=== PATIENT | male | born 1960 | race Caucasian/White ===

== ENCOUNTER 2024-12-08 13:16 | Inpatient (IN) | payer MEDICAID ==
[~2024-12-08] VITALS: Ht 165.1 cm; Wt 123.7 kg
[2024-12-08] VITALS (18 sets, daily range): BP systolic 101–147; BP diastolic 42–82; PULSE 68–100; RESP 14–29; TEMP 98.2; O2SAT 92–100
--- NOTE | 2024-12-08 13:27 | ELECTROCARDIOGRAPH REPORT ---
[facility] Test Date: 2024-12-08 Test Time: 13:21:43 Pat Name: ANGELA HINTON Department: EMERGENCY ROOM Room: Gender: M Chart Picker: LARISA : 1960 Requested By: RAMA MONTIEL Order Number: [id number] Reading MD: Adan Crocker Measurements Intervals [place] Rate: 105 P: 22 IN: 177 QRS: 66 QRSD: 101 T: -7 QT: 346 QTc: 458 Interpretive Statements Sinus tachycardia Anterior infarct, age indeterminate Electronically Signed On 12-08-2024 15:12:06 PDT by Adan Crocker Please click the below link to view image of tracing.
--- NOTE | 2024-12-08 13:33 | Physician Documentation ---
History of Present Illness ~ Stated Complaint: POST CODE Time Seen by MD: 13:24 OK to notify your PCP?: Yes Source: patient, RN/MD, EMS, RN notes reviewed, EMS notes reviewed, old records Mode of Arrival: EMS Exam Limitations: other HPI This patient is a 64 y/o male BIBEMS to ED from [facility] post-acute for ROSC. Patient has history of delerium and agitation, and is routinely in restraints as he tries to rip out his medical equipment. Today, patient managed to ripped the oxygen from his tracheotomy tube, and was found by staff to be pulseless. [facility] staff, prior to arrival, administered 2 rounds of CPR and 1 round of epi, achieved ROSC. Labs of note prior to arrival at [facility] taken show: Creatinine of 1.64 Vitamin D of 42 Calcium of 13.2 Hematocrit of 25 HPI limited to records from [facility] as patient is agitated and noncompliant with questioning. Medication Reconciliation Allergies: Coded Allergies: Penicillins (Verified Allergy, Severe, STOP BREATHING, 12/08/24) honey (Verified Allergy, Severe, SWELLING, 12/08/24) Past Medical History Past Medical History: Atrial Fibrillation, COPD, Constipation, Diabetes, Chronic Pain, Anxiety Past Surgical History: noncontributory Smoking Status: Unknown if ever smoked Alcohol Use: None Drug Use: none Unable to obtain complete PMH: altered mental status (obtained from old records) Review of Systems Unable to obtain complete ROS: altered mental status Physical Exam Physical Exam General: The patient is agitated. Otherwise well developed, well nourished, nontoxic appearing and is in no acute distress. Skin: [place], warm and dry with no rashes. HEENT: Head was normocephalic and atraumatic. Eyes - pupils equal, round, reactive to light and accommodation. Extraocular movements were intact. Conjunctivae were nonicteric. The mouth and oropharynx were clear with moist mucous membranes. There were no pharyngeal exudates or erythema. Neck: Tracheotomy. Supple and nontender. There was no jugular venous distention, lymphadenopathy, thyromegaly or masses. Chest: Tachypneic. Otherwise clear to auscultation bilaterally without wheezes, rales or rhonchi. No accessory muscle use. No dullness to percussion. Heart: Tachycardic and regular rhythmic. S1, S2. No murmurs. Palpation of the chest wall was normal. No rubs or thrills. Abdomen: Soft, nontender and nondistended. Positive bowel sounds. No guarding or rebound. No hepatosplenomegaly or palpable masses. Extremities: No cyanosis, clubbing or edema. The patient moves all extremities. Pulses were equal and symmetric. Neurologic: Cranial nerves II-XII were intact. Sensation was intact to light touch throughout. Motor strength was 5/5 in all four extremities. Deep tendon reflexes were intact in both upper and lower extremities. Psychologic: Agitated. The patient was oriented to person. Progress Progress Note 1509: Case discussed with Dr. Pino who is aware and agrees to evaluate patient for admission. Results/Orders Reviewed/noted all lab results: Yes Results/Orders Orders - DAVID GUPTA MD Electrocardiogram (12/08/24 13:24) Abg (Arterial Blood Gas) (12/08/24 ) Cult Sputum + Gram Stain (12/08/24 13:35) Aerosol Treatment (12/08/24 ) Non-Behavioral Restraints (12/08/24 13:39) Md To Pavithra (12/08/24 15:09) Heliox Svn Treatment (12/08/24 ) Completed Orders - DAVID GUPTA MD Cbc/Diff (12/08/24 13:24) MG (12/08/24 13:24) Pt Inr (12/08/24 13:24) PTT (12/08/24 13:24) PBNP (12/08/24 13:24) Electrocardiogram (12/08/24 13:24) BMP (12/08/24 13:24) Hs Troponin I W Calculations (12/08/24 13:24) Hs Troponin I W Calculations (12/08/24 15:24) Hs Troponin I W Calculations (12/08/24 16:24) CAION (12/08/24 13:39) Ua W/Microscopic, Cult If Ind (12/08/24 14:35) Albuterol 2.5mg/3ml Nebule (Proventil 2. (12/08/24 16:20) Medications Received in ER Medications (Trade) Dose Ordered Sig/Adalberto Route PRN Reason Start Time Stop Time Status Last Admin Dose Admin (Proventil 2.5 MG/3ML nebule) 2.5 mg ONCE ONCE NEB 12/08/24 16:20 12/08/24 16:21 DC 12/08/24 16:45 2.5 MG Vital Signs 12/08/24 12/08/24 12/08/24 12/08/24 13:19 13:51 13:55 13:55 Temp 98.2 Pulse 104 93 91 Resp 30 28 22 B/P (MAP) 174/88 113/57 (75) Pulse Ox 95 97 96 O2 Delivery Cool/Heated Aerosol Mist+ O2 Flow Rate 15.0 10 FiO2 70 70 70 12/08/24 12/08/24 12/08/24 12/08/24 13:58 14:37 15:08 16:09 Pulse 99 101 102 Resp 28 36 32 B/P (MAP) 117/77 (90) 120/67 (84) 130/86 (101) Pulse Ox 94 94 91 FiO2 70 70 70 12/08/24 16:45 Pulse 100 Resp 28 Pulse Ox 95 O2 Delivery Ventilator+ FiO2 70 Laboratory Tests Test 12/08/24 13:33 12/08/24 13:37 12/08/24 14:28 12/08/24 14:35 Glucometer 134 H Blood Gas Specimen Type Arterial Blood Gas Puncture Site Rr O2 Saturation 86.4 L Arterial Blood pH (Temp corrected) 7.352 Arterial Blood pCO2 (Temp correct) 69.2 *H Arterial Blood pO2 (Temp corrected) 56.2 L Arterial Blood PO2/FiO2 Ratio 0.57 Arterial Blood HCO3 37.6 H Arterial Blood Base Excess 10.2 H Arterial Blood Oxyhemoglobin 85.9 L Arterial Blood Carboxyhemoglobin 0.3 L Arterial Blood Methemoglobin 0.3 Arterial Blood Deoxyhemoglobin 13.5 H Soren Test Positive Blood Gas Hemoglobin 9.2 L Blood Gas Temperature 36.8 Blood Gas Modality Cool aerosol FiO2 100.0 Blood Gas Critical Value Called To Dr gupta White Blood Count 14.5 H Red Blood Count 2.74 L Hemoglobin 8.1 L Hematocrit 24.6 L Mean Corpuscular Volume 89.7 Mean Corpuscular Hemoglobin 29.7 Mean Corpuscular Hemoglobin Concent 33.1 Red Cell Distribution Width 16.6 H Platelet Count 327 Mean Platelet Volume 8.0 Neutrophils (%) (Auto) 83.1 H Lymphocytes (%) (Auto) 6.7 L Monocytes (%) (Auto) 8.8 Eosinophils (%) (Auto) 1.2 Basophils (%) (Auto) 0.2 Neutrophils # (Auto) 12.1 H Lymphocytes # (Auto) 1.0 L Monocytes # (Auto) 1.3 H Eosinophils # (Auto) 0.2 Basophils # (Auto) 0.0 CBC Comment Prothrombin Time 11.8 INR International Normalized Ratio 1.2 Activated Partial Thromboplast Time 25 Coagulation Comments Sodium Level 141 Potassium Level 3.4 L Chloride Level 100 Carbon Dioxide Level 38.2 H Anion Gap 3 L Blood Urea Nitrogen 36 H Creatinine 1.83 H Estimated GFR/1.73 m2 38 BUN/Creatinine Ratio 19.7 Glucose Level 128 H Calcium Level 12.3 *H Ionized Calcium (Measured) 1.53 H Magnesium Level 1.9 Troponin I High Sensitivity 46 Pro-B-Type Natriuretic Peptide 654 H Albumin 2.7 L Chemistry Comments Urine Specimen Description Urinal Urine Color Yellow Urine Clarity Clear Urine pH 6.0 Urine Specific [place] 1.015 Urine Protein Trace Urine Glucose (UA) Negative Urine Ketones Negative Urine Occult Blood Negative Urine Nitrite Negative Urine Bilirubin Negative Urine Urobilinogen 0.2 Urine Leukocyte Esterase Negative Urine RBC 0-2 Urine WBC 0-4 Urine Squamous Epithelial Cells Few Urine Transitional Epithelial Cells Few Urine Bacteria None seen Urine Hyaline Casts 10-30 Urine Culture Indicated Not ind Volume Urine Centrifuged 10 ml Urine Comment Test 12/08/24 16:48 Troponin I High Sensitivity 117 *H Troponin I High Sens Percent Delta 154 Troponin I Hi Sens Absolute Change 71 Microbiology Date/Time Source Procedure Growth Status 12/08/24 13:30 Sputum Endotracheal Suction Respiratory Culture - Preliminary Resulted Re-Evaluation Re-Evaluation : Re-Evaluation: Improved Progress Patient was seen and examined. Patient is given reassurance. The patient is status post cardiac arrest asystole per EMS. He was brief. Patient had a complication with his trachea is large phlegm mucus was removed from the trachea. Patient remained normotensive. Laboratory work was obtained. WBCs slightly elevated with 14.5 otherwise hemoglobin hematocrit shows anemia at 8.1 and hematocrit 24 point six. Platelets 327 with a 83 neutrophils. ABG showed some CO2 retention with hypoxia. Coagulation within normal limits chemistry within normal limits. Patient received neb treatments Heliox treatments were because of some difficulty breathing. He seemed altered confused. Fluids were also given to the patient and ultimately was admitted for further workup and care. Continuous scrap hooker interpretation shows normal sinus rhythm heart rate 80s, no ectopy, normal, my interpretation. Pulse oximetry monitor interpretation shows low oxygenation at 95% on 15% non- rebreather on a T-piece. EKG/XRAY/CT/US/VASC/MRI EKG : Additional Comment Patient: ANGELA HINTON Medical Record: [id number] : 1960, Age: 64Sex: M Location: ER Patient Status: REG ER Service Date/Time: 124356 Ordering Physician: DAVID GUPTA MD Exam Name: ELECTROCARDIOGRAM Technologist: [facility] Test Date: 2024-12-08 Test Time: 13:21:43 Pat Name: ANGELA HINTON Department: EMERGENCY ROOM Room: Gender: M Twisthand: : 1960 Requested By: DAVID GUPTA Order Number: [id number] Reading MD: Adan Coughlin Measurements Intervals [place] Rate: 105 P: 22 FL: 177 QRS: 66 QRSD: 101 T: -7 QT: 346 QTc: 458 Interpretive Statements Sinus tachycardia Anterior infarct, age indeterminate Electronically Signed On 12-08-2024 15:12:06 PDT by Adan Coughlin Please click the below link to view image of tracing. EKG Date and Time:12/08/24 1321 Electronically Signed by: ADAN COUGHLIN MD Date and Time: 12/08/24 1512 NO PRIMARY CARE PROVIDER~ cc: ~ Medical Decision Making Additional info obtained from: old records Differential Dx:Considerations: Include: angina, aortic dissection, chest wall pain, cholelithiasis, CHF, costochondritis, esophageal reflux/spasm, gastritis, herpes zoster, myocardial infarction, pericarditis, pleuritis, pancreatitis, pneumonia, pneumothorax, pulmonary embolus, other Departure Time of Disposition: 15:09 Disposition: 09 ADMITTED INPATIENT Admitted to Inpatient Unit: yes, to gis administrator Admission Level of Care: Critcal Care Impression: Primary Impression: Acute and chronic respiratory failure with hypercapnia Additional Impressions: Hypercalcemia Non-ST elevation OR (NSTEMI) Condition: Critical Referrals: NO PRIMARY CARE PROVIDER (PCP) Education Educated: Patient Critical Care Note Total Time (mins): 30 Critical Care Note The very real possibility of a deterioration of this patient's condition required the highest level of my preparedness for sudden, emergent intervention. I provided critical care services, which included medication orders, frequent reevaluations of the patient's condition and response to treatment, ordering and reviewing test results, and discussing the case with various consultants. Exclu lela time spent performing separately billable procedures. The critical care time associated with the care of the patient was. 30 minutes Signature Scribe Signature: No scribed Attestation: The note accurately reflects work and decisions made by me.David Gupta MD 12/08/24 15:35 DAVID GUPTA MD Dec 08, 2024 13:33
[2024-12-08 13:40] LABS: ABG BASE EXCESS 10.2 mmol/L (-2.0-3.0); ABG HCO3 37.6 mmol/L (21.0-28.0); ABG OXYGEN SATURATION 86.4 % (94.0-98.0); ABG PCO2 (T) 69.2 mmHg (35.0-48.0); ABG PH (T) 7.352 (7.350-7.450); ABG PO2 (T) 56.2 mmHg (83.0-108.0); ALLEN'S TEST POSITIVE; FCOHb 0.3 % (0.5-1.5); FHHb 13.5 % (0.0-5.0); FMetHb 0.3 % (0.0-1.5); FO2Hb 85.9 % (94.0-98.0); MODE COOL AEROSOL; PATIENT TEMPERATURE 36.8; TOTAL HEMOGLOBIN 9.2 G/dl (13.5-17.5)
[2024-12-08 14:40] LABS: BASOPHILS % (AUTO) 0.2 % (0-1); EOSINOPHILS # (AUTO) 0.2 X10'3 (0-0.9); EOSINOPHILS % (AUTO) 1.2 % (0-6); HEMATOCRIT 24.6 % (42.0-52.0); HEMOGLOBIN 8.1 g/dl (14.0-17.9); LYMPHOCYTES % (AUTO) 6.7 % (21-51); MEAN CORPUSCULAR HEMOGLOBIN 29.7 PG (27.0-31.0); MEAN CORPUSCULAR HGB CONC 33.1 g/dL (33.0-36.5); MEAN CORPUSCULAR VOLUME 89.7 FL (78-98); MONOCYTES # (AUTO) 1.3 X10'3 (0-0.9); MONOCYTES % (AUTO) 8.8 % (2-12); NEUTROPHILS # (AUTO) 12.1 X10'3 (1.8-7.7); NEUTROPHILS % (AUTO) 83.1 % (42-75); PLATELET COUNT 327 X10'3 (140-440); RED BLOOD COUNT 2.74 X10'6 (4.70-6.10); RED CELL DISTRIBUTION WIDTH 16.6 % (11.5-14.5); WHITE BLOOD COUNT 14.5 X10'3 (4.5-11.0)
[2024-12-08 14:53] LABS: BILIRUBIN,URINE NEGATIVE (Neg); CLARITY,URINE CLEAR (Clear); COLOR,URINE YELLOW (Yellow); GLUCOSE, URINE NEGATIVE (Neg); KETONES,URINE NEGATIVE (Neg); LEUKOCYTE ESTERASE ,URINE NEGATIVE (Neg); NITRITES, URINE NEGATIVE (Neg); OCCULT BLOOD,URINE NEGATIVE (Neg); PROTEIN,URINE TRACE mg/dl (Neg); UROBILINOGEN,URINE 0.2 E.U/dL (0.2-1.0)
[2024-12-08 14:55] LABS: APTT 25 SECONDS (22-32); INR 1.2 INR; PROTHROMBIN TIME 11.8 SECONDS (9.0-12.0)
[2024-12-08 14:57] LABS: UA COLLECTION TYPE URINAL
[2024-12-08 15:03] LABS: ALBUMIN 2.7 G/DL (3.4-5.0); ANION GAP 3 (8-16); BLOOD UREA NITROGEN 36 MG/DL (7-18); BUN/CREATININE RATIO 19.7 (10.0-20.0); CHLORIDE 100 MMOL/L (99-107); CREATININE 1.83 MG/DL (0.60-1.10); GLUCOSE 128 MG/DL (70-104); MAGNESIUM 1.9 MG/DL (1.5-2.4); POTASSIUM 3.4 MMOL/L (3.5-5.1); PRO BRAIN NATRIURETIC PEPTIDE 654 PG/ML (0-125); SODIUM 141 MMOL/L (135-145); TOTAL CARBON DIOXIDE 38.2 MMOL/L (24-32); eCRCL 36 ML/MIN; eGFR 38 ML/MIN
[2024-12-08 15:11] LABS: RBC,URINE 0-2 /HPF (0-2); WBC,URINE 0-4 /HPF (0-4)
[2024-12-08 15:12] LABS: BACTERIA,URINE NONE SEEN /HPF (Neg); SQUAMOUS EPITHELIAL CELL,UR FEW /LPF (FEW); TRANSITIONAL EPI CELLS,URINE FEW /HPF
[2024-12-08 15:13] LABS: CALCIUM 12.3 MG/DL (8.5-10.1)
[2024-12-08] MEDS ORDERED: mag hydrox/Alum hydrox/simeth 30ml oral suspension PO PRN (16:45)
[2024-12-08] MEDS ORDERED: potassium Cl 20 mEq SR tablet PO PRN ×2 (16:45)
[2024-12-08] MEDS ORDERED: magnesium hydroxide 30ml (MOM) UD suspension PO PRN (16:45)
[2024-12-08] MEDS ORDERED: magnesium sulf-water 4G/100mL 100 ML IV PRN (16:45)
[2024-12-08] MEDS ORDERED: magnesium Cl slow-release 64mg tablet PO PRN (16:45)
[2024-12-08] MEDS: albuterol 2.5 MG/3 ML nebule NEB ONE (16:45)
[2024-12-08] MEDS ORDERED: magnesium sulf-water 2g/50mL 50 ML IV PRN (16:45)
[2024-12-08] MEDS ORDERED: acetaminophen 325mg tablet PO PRN (16:45)
--- NOTE | 2024-12-08 17:07 | HISTORY AND PHYSICAL ---
History of Present Illness History of present illness 64-year-old male who was transferred from [facility] after suffering a respiratory arrest. Charge nurse reports that the patient started having some oxygen desaturations on his telemetry and when they went to check on the patient, patient was found to be cyanotic and unresponsive with humidified trach collar off. He was pulseless and a code was called. He had ROSC after two rounds of epinephrine and also became responsive i.e. squeezing hands with both of his upper extremities to command according to the charge nurse. He was then transferred to [facility] where he arrived awake alert and commanding as well as hemodynamically stable . I was consulted to admit the patient to the ICU. Background history of the patient was that he was initially admitted to [facility] for acute respiratory failure that required a tracheostomy and PEG tube placement and was transferred to [facility]. He was transferred again to [facility] and back to [facility] He required another transferred to [facility] for altered level of consciousness and fevers and was found to have ESBL Proteus pneumonia. He was also notable for TORITO on CKD and was started on renal replacement therapy. He showed some improvements and was transferred back to [facility]. Expected to stay > 48 hours Yes Reason for Visit: Pulmonary critical care consultation Chief complaint Status post respiratory arrest culminating in cardiac arrest. Source: Other (Charge nurse [facility]) Past Medical History Past medical history Obesity, hypotension, amphetamine use,HFpEF, CKD, chronic pressure wounds, acute respiratory failure Past Surgical History Surgical history Noncontributory. Past Family History Family history Noncontributory Past Social History Social history History of cigarette smoking and amphetamine use. Medications Current medications Current Medications Albuterol (Proventil 2.5 MG/3ML nebule) 2.5 mg ONCE ONCE NEB Last administered on 12/08/24at 16:45; Start 12/08/24 at 16:20; Stop 12/08/24 at 16:21; Status DC Ondansetron HCl (Zofran 4mg/2ml vial) 4 mg Q6H PRN IV nausea/vomiting; Start 12/08/24 at 16:45; Status UNV Acetaminophen (Tylenol tablet) 650 mg Q6H PRN PO Fever above 101; Start 12/08/24 at 16:45; Status UNV Al Hydroxide/Mg Hydroxide (Maalox oral suspension) 30 ml Q4H PRN PO indigestion/dyspepsia; Start 12/08/24 at 16:45; Status UNV Docusate Sodium (Colace capsule) 100 mg BID PO ; Start 12/08/24 at 20:00; Status UNV Magnesium Hydroxide (milk of magnesia oral suspension) 30 ml DAILY PRN PO constipation; Start 12/08/24 at 16:45; Status UNV Potassium Chloride (K-DUR tablet) 20 meq Q4H PRN PO Potassium 3.1-3.4; Start 12/08/24 at 16:45; Stop 12/11/24 at 16:44; Status UNV Potassium Chloride (K-DUR tablet) 40 meq Q4H PRN PO Potassium 3.0 or less; Start 12/08/24 at 16:45; Stop 12/11/24 at 16:44; Status UNV Magnesium Chloride (Slow-Mag tablet) 128 mg BID PRN PO Mag 1.4 or less & can take PO; Start 12/08/24 at 16:45; Stop 12/11/24 at 16:44; Status UNV Review of Systems Review of Systems Review of Systems Unable to get review of systems from the patient on mechanical ventilation. Allergies: Coded Allergies: Penicillins (Verified Allergy, Severe, STOP BREATHING, 12/08/24) honey (Verified Allergy, Severe, SWELLING, 12/08/24) Exam Vital signs Vital Signs Date Time Temp Pulse Resp B/P (MAP) Pulse Ox O2 Delivery O2 Flow Rate FiO2 12/08/24 16:45 100 28 95 Ventilator+ 70 12/08/24 16:09 102 130/86 (101) 91 70 12/08/24 15:08 101 32 120/67 (84) 94 70 12/08/24 14:37 99 36 117/77 (90) 94 70 12/08/24 13:58 28 12/08/24 13:55 91 22 96 Cool/Heated Aerosol Mist+ 10 70 12/08/24 13:55 70 12/08/24 13:51 93 28 113/57 (75) 97 70 12/08/24 13:19 98.2 104 30 174/88 95 15.0 Physical exam General: Awake alert and in respiratory distress new line HEENT examination: N/C/AT, PERRLA, EOMI Neck: Tracheostomy in place, no lymphadenopathy Chest: Symmetric expansion bilaterally. Pulmonary: Bilateral diffuse wheezing, no rales and no rhonchi. Abdomen: Soft nontender and no organomegaly. Extremities: 1+ edema Neurological examination: Grossly nonfocal. Laboratory Results Laboratory Tests 12/08/24 14:28 Chemistry Test 12/08/24 14:28 Albumin 2.7 G/DL (3.4-5.0) L Calcium Level 12.3 MG/DL (8.5-10.1) *H Magnesium Level 1.9 MG/DL (1.5-2.4) Coagulation Test 12/08/24 14:28 Prothrombin Time 11.8 SECONDS (9.0-12.0) INR International Normalized Ratio 1.2 INR Activated Partial Thromboplast Time 25 SECONDS (22-32) Coagulation Comments Urinalysis Test 12/08/24 14:35 Urine Specimen Description Urinal Urine Color Yellow (Yellow) Urine Clarity Clear (Clear) Urine pH 6.0 (4.8-8.0) Urine Specific [place] 1.015 (1.001-1.035) Urine Protein Trace mg/dl (Neg) Urine Glucose (UA) Negative mg/dl (Neg) Urine Ketones Negative mg/dl (Neg) Urine Occult Blood Negative (Neg) Urine Nitrite Negative (Neg) Urine Bilirubin Negative (Neg) Urine Urobilinogen 0.2 E.U/dL (0.2-1.0) Urine Leukocyte Esterase Negative (Neg) Urine RBC 0-2 /HPF (0-2) Urine WBC 0-4 /HPF (0-4) Urine Squamous Epithelial Cells Few /LPF (FEW) Urine Transitional Epithelial Cells Few /HPF Urine Bacteria None seen /HPF (Neg) Urine Hyaline Casts 10-30 /LPF (NEGATIVE) Urine Culture Indicated Not ind Volume Urine Centrifuged 10 ml Urine Comment Microbiology Microbiology 12/08/24 Respiratory Culture - Preliminary, Resulted Assessment/Plan Plan Acute on chronic respiratory failure culminating in cardiac arrest. Acute coronary syndrome Cardiac arrest with ROSC: Patient awake alert and responsive. Atrial fibrillation: Currently in sinus rhythm Bronchospasm: Could be due to COPD exacerbation or cardiac asthma Obesity Obstructive sleep apnea Plan: Initiate full support ventilation in light of respiratory distress and wheezing. Continue bronchodilator therapy with albuterol/ipratropium bromide q.4 hours. Also continue formoterol and budesonide. Complete cardiac enzyme assays. No need for IV heparin/aspirin at this point. We will obtain echocardiogram Continue apixaban for atrial fibrillation. Continue all other hospital medications. Code status: Full code Sedation: No continue sedation ordered. Analgesia: Avoid use of narcotics and try to use p.r.n. Tylenol. Nutrition: Continue Nepro 50 mL/hour per PEG tube. Overall prognosis: Guarded Critical care time in excess of 35 minutes. VTE VTE Risk Score VTE Risk Score Reference Ranges: Score 0-1 = Low Risk (Aggressive mobilization; early ambulation; no VTE prophylaxis required) Score 2: Moderate Risk (Intermittent/Pneumatic Compression Device OR Lovenox/Heparin/Coumadin) Score 3-4: High Risk (Intermittent/Pneumatic Compression Device AND Lovenox/Heparin/Coumadin) Score > or = 5: Highest Risk (Intermittent/Pneumatic Compression Device AND Lovenox/Heparin/Coumadin) ANNA DUBON MD Dec 08, 2024 17:07
[2024-12-08] MEDS ORDERED: magnesium hydroxide 30ml (MOM) UD suspension PEG PRN (17:31)
[2024-12-08] MEDS ORDERED: POTASSIUM CHLORIDE 20 MEQ/15 ML oral solution PEG PRN (17:32)
[2024-12-08] MEDS: POTASSIUM CHLORIDE 20 MEQ/15 ML oral solution PEG PRN (17:43)
--- NOTE | 2024-12-08 18:08 | RADIOLOGY REPORT ---
CLINICAL INFORMATION: 64 years old, Male; Acute respiratory arrest. TECHNIQUE: Single AP portable chest radiograph was obtained. COMPARISON: None FINDINGS: Lungs: Low lung volumes. Bibasilar opacities, likely atelectasis and possible consolidation, left gre ater than right. No pneumothorax visualized. Cardiac: Heart size is within normal limits. Pulmonary vasculature: Unremarkable. Mediastinum/archana: Tracheostomy tube in place. Bones: No acute osseous abnormality identified. Other: Defibrillator pad overlies the central aspect of the chest, partially obscuring visualization. Examination is also limited due to body habitus and portable semi-upright AP technique. IMPRESSION: 1. Low lung volumes with bibasilar opacities, likely atelectasis and possible consolidation, left gre ater than right. 2. Limited examination for the reasons described above.
[2024-12-08] MEDS: LidoCAINE 2% Topical Jelly 11mL syringe (UROJET) TOP ONE (18:10)
[2024-12-08] MEDS: dexmedetomidin/NS 400mcg/100ml 100 ML IV PRN (18:25)
[2024-12-08] MEDS: budesonide 0.5mg/2ml UD nebule IH SCH (19:00)
[2024-12-08] MEDS: ipratropium/albuterol 3ml nebule NEB SCH (19:00)
[2024-12-08] MEDS: K and/or MAG REPLACEMENT MC SCH (20:00)
[2024-12-08] MEDS: insulin regular, human U-100 10ml vial - multi-dose SQ SCH (20:00)
[2024-12-08] MEDS: apixaban 5mg tablet PEG SCH (21:31)
[2024-12-08] MEDS: famotidine 20mg tablet PEG SCH (21:31)
[2024-12-08] MEDS: docusate sodium 100mg/10ml UD cup PEG SCH (21:31)
[2024-12-08] MEDS: furosemide 40 MG/4 ML oral solution UD cup PEG SCH (21:32)
[2024-12-08] MEDS: potassium Cl 40MEQ/1/2NS 520ml 520 ML IV PRN (21:57)
[2024-12-08] MEDS: furosemide 20 MG/2 ML vial IV ONE (23:38)
[2024-12-08] MEDS: GABAPENTIN 300 MG/6 ML oral SOLUTION cup PEG SCH (23:39)
[2024-12-09] VITALS (45 sets, daily range): BP systolic 101–130; BP diastolic 34–61; PULSE 63–85; RESP 2–29; O2SAT 91–97
[2024-12-09 03:08] LABS: ABG BASE EXCESS 8.5 mmol/L (-2.0-3.0); ABG HCO3 32.5 mmol/L (21.0-28.0); ABG OXYGEN SATURATION 92.8 % (94.0-98.0); ABG PCO2 (T) 42.7 mmHg (35.0-48.0); ABG PH (T) 7.499 (7.350-7.450); ABG PO2 (T) 63.3 mmHg (83.0-108.0); ALLEN'S TEST POSITIVE; FCOHb 0.5 % (0.5-1.5); FHHb 7.2 % (0.0-5.0); FO2Hb 92.3 % (94.0-98.0); MODE VENT - APRV; PATIENT TEMPERATURE 37.1; TIDAL VOLUME 400 mL; TOTAL HEMOGLOBIN 8.3 G/dl (13.5-17.5)
--- NOTE | 2024-12-09 05:43 | RADIOLOGY REPORT ---
EXAM: XR Chest, 1 View CLINICAL INDICATION: ET Tube Placement TECHNIQUE: Frontal view of the chest. COMPARISON: DI CHEST,SINGLE VIEW on DOS: 12/08/24 FINDINGS: LUNGS AND PLEURAL SPACES: Bilateral pleural effusions. HEART: Cardiomegaly with pulmonary congestion and edema. Superimposed pneumonia cannot be excluded. MEDIASTINUM: Unremarkable. Normal mediastinal contour. BONES/JOINTS: Unremarkable. No acute fracture. TUBES, LINES AND DEVICES: Tracheostomy tube in satisfactory position. OTHER FINDINGS: . . . IMPRESSION: 1. Cardiomegaly with pulmonary congestion and edema. Superimposed pneumonia cannot be excluded. 2. Bilateral pleural effusions.
[2024-12-09 06:01] LABS: BASOPHILS % (AUTO) 0.4 % (0-1); EOSINOPHILS # (AUTO) 0.1 X10'3 (0-0.9); EOSINOPHILS % (AUTO) 1.3 % (0-6); LYMPHOCYTES # (AUTO) 0.6 X10'3 (1.1-4.8); LYMPHOCYTES % (AUTO) 8.6 % (21-51); MEAN CORPUSCULAR HEMOGLOBIN 29.8 PG (27.0-31.0); MEAN CORPUSCULAR HGB CONC 33.3 g/dL (33.0-36.5); MEAN CORPUSCULAR VOLUME 89.4 FL (78-98); MONOCYTES # (AUTO) 0.8 X10'3 (0-0.9); MONOCYTES % (AUTO) 10.8 % (2-12); NEUTROPHILS # (AUTO) 5.8 X10'3 (1.8-7.7); NEUTROPHILS % (AUTO) 78.9 % (42-75); PLATELET COUNT 263 X10'3 (140-440); RED BLOOD COUNT 2.69 X10'6 (4.70-6.10); RED CELL DISTRIBUTION WIDTH 16.4 % (11.5-14.5); WHITE BLOOD COUNT 7.4 X10'3 (4.5-11.0)
[2024-12-09 06:08] LABS: ALBUMIN 2.6 G/DL (3.4-5.0); ANION GAP 5 (8-16); BLOOD UREA NITROGEN 37 MG/DL (7-18); BUN/CREATININE RATIO 19.7 (10.0-20.0); CALCIUM 11.1 MG/DL (8.5-10.1); CHLORIDE 100 MMOL/L (99-107); CREATININE 1.88 MG/DL (0.60-1.10); GLUCOSE 113 MG/DL (70-104); MAGNESIUM 1.9 MG/DL (1.5-2.4); POTASSIUM 3.9 MMOL/L (3.5-5.1); SODIUM 141 MMOL/L (135-145); TOTAL CARBON DIOXIDE 35.8 MMOL/L (24-32); eCRCL 35 ML/MIN; eGFR 36 ML/MIN
[2024-12-09] MEDS: levoTHYROXINE 125mcg tablet PEG SCH (08:22)
[2024-12-09] MEDS: ferrous sulfate 300mg/5ml UD oral liquid PEG SCH (08:22)
[2024-12-09] MEDS: levoTHYROXINE 25mcg tablet PEG SCH (08:23)
[2024-12-09] MEDS: montelukast 10mg tablet PEG SCH (08:23)
[2024-12-09] MEDS ORDERED: metolazone 2.5mg tablet PO SCH (08:35)
[2024-12-09] MEDS: furosemide 10 MG/1 ML 10ml inj IV SCH (09:04)
[2024-12-09] MEDS: nystatin 15 GM powder TP SCH (09:04)
[2024-12-09] MEDS ORDERED: dexmedetomidine 200mcg/2ml inj. IV ONE (09:45)
[2024-12-09] MEDS ORDERED: FER300L PO (10:00)
[2024-12-09] MEDS ORDERED: APIX5TAB3 PO (10:00)
[2024-12-09] MEDS ORDERED: GABA-530 PO (10:00)
[2024-12-09] MEDS ORDERED: LEVO150T8 PO (10:00)
[2024-12-09] MEDS ORDERED: MONT-40 PO (10:00)
[2024-12-09] MEDS ORDERED: LIDO1ADH78 TOP (10:00)
[2024-12-09] MEDS ORDERED: FURO-149 IV (10:00)
[2024-12-09] MEDS ORDERED: FAMO20TA8 PO (10:00)
[2024-12-09] MEDS ORDERED: INSU100V49 SQ (10:00)
[2024-12-09] MEDS ORDERED: FORM20VI4 NEB (10:00)
[2024-12-09] MEDS: risperiDONE 2mg tablet PEG ONE (10:25)
[2024-12-09] MEDS ORDERED: ALB0.5UD NEB (10:37)
[2024-12-09] MEDS ORDERED: [UNRECOGNIZED DRUG - CODE] IM (10:37)
[2024-12-09] MEDS ORDERED: HYDR-3965 PO (10:37)
[2024-12-09] MEDS ORDERED: BUDE0.256 NEB (10:37)
[2024-12-09] MEDS: nystatin 500,000 unit/5ML UD oral suspension PO SCH (11:35)
--- NOTE | 2024-12-09 11:47 | PROGRESS NOTE ---
Subjective Subjective Patient is seen today. On full mechanical ventilation support via tracheostomy. FiO2 from 80% down to 70%. Chest x-ray showing interval worsening of bilateral pulmonary infiltrates suggestive of pulmonary edema. Reason for visit: Pulmonary critical care follow-up Reviewed: Care Plan, H&P, Labs, Radiology Review of Systems Changes from previous H/P or p: No Changes Daily Progress Note Exam Vitals Vital Signs Date Time Temp Pulse Resp B/P (MAP) Pulse Ox O2 Delivery O2 Flow Rate FiO2 12/09/24 11:00 98.2 74 17 116/52 (73) 94 Mechanical Ventilator 70 12/08/24 13:55 10 Result Diagram: 12/09/24 0421 12/09/24 042 Exam General: Awake alert and in respiratory distress new line HEENT examination: N/C/AT, PERRLA, EOMI Neck: Tracheostomy in place, no lymphadenopathy Chest: Symmetric expansion bilaterally. Pulmonary: Bilateral diffuse wheezing, no rales and no rhonchi. Abdomen: Soft nontender and no organomegaly. Extremities: 1+ edema Neurological examination: Grossly nonfocal. Results Coagulation Studies Laboratory Tests Test 12/08/24 14:28 Prothrombin Time 11.8 SECONDS (9.0-12.0) INR International Normalized Ratio 1.2 INR Activated Partial Thromboplast Time 25 SECONDS (22-32) Coagulation Comments VTE VTE Risk Score VTE Risk Score Reference Ranges: Score 0-1 = Low Risk (Aggressive mobilization; early ambulation; no VTE prophylaxis required) Score 2: Moderate Risk (Intermittent/Pneumatic Compression Device OR Lovenox/Heparin/Coumadin) Score 3-4: High Risk (Intermittent/Pneumatic Compression Device AND Lovenox/Heparin/Coumadin) Score > or = 5: Highest Risk (Intermittent/Pneumatic Compression Device AND Lovenox/Heparin/Coumadin) Assessment/Plan Plan Acute on chronic respiratory failure culminating in cardiac arrest. Acute coronary syndrome Cardiac arrest with ROSC: Patient awake alert and responsive. Atrial fibrillation: Currently in sinus rhythm Bronchospasm: Could be due to COPD exacerbation or cardiac asthma Obesity Obstructive sleep apnea Plan: Continue full support ventilation in light of ARDS i.e. currently on a PEEP of 10 and FiO2 of 70%. Continue bronchodilator therapy with albuterol/ipratropium bromide q.4 hours. Also continue formoterol and budesonide. Adjust diuretic therapy to Lasix 60 mg IV q.6 hours and metolazone 10 mg per tube q.12 hours. Follow electrolytes. Check procalcitonin level. Complete cardiac enzyme assays. No need for IV heparin/aspirin at this point. Echocardiography results pending. Continue apixaban for atrial fibrillation. Continue all other hospital medications. Code status: Full code Sedation: No continue sedation ordered. Analgesia: Avoid use of narcotics and try to use p.r.n. Tylenol. Nutrition: To be addressed by dietary. Overall prognosis: Guarded Critical care time in excess of 35 minutes. Expected Outcome/Goals Expected Outcomes/Goals: maintain stable wt, TF tolerance, bowel regularity, optimal skin integrity ANNA DUBON MD Dec 09, 2024 11:47
[2024-12-09 11:53] LABS: MAGNESIUM 1.8 MG/DL (1.5-2.4); PHOSPHORUS 2.6 MG/DL (2.3-4.5); POTASSIUM 3.6 MMOL/L (3.5-5.1)
[2024-12-09 12:05] LABS: PREALBUMIN 15.3 MG/DL (19-36)
[2024-12-09 12:12] LABS: HEMOGLOBIN A1C 5.8 % (4.5-6.2)
[2024-12-09 12:36] LABS: ALANINE AMINOTRANSFERASE 21 U/L (12-78); ALBUMIN 2.5 G/DL (3.4-5.0); ALBUMIN/GLOBULIN RATIO 0.6 (1.1-1.5); ALKALINE PHOSPHATASE 84 IU/L (46-116); ASPARTATE AMINO TRANSFERASE 19 U/L (10-37); BILIRUBIN,DIRECT 0.1 MG/DL (0-0.3); BILIRUBIN,TOTAL 0.3 MG/DL (0.1-1.0); TOTAL PROTEIN 6.7 G/DL (6.4-8.2)
[2024-12-09] MEDS: risperiDONE 0.5mg tablet PEG ONE (13:03)
--- NOTE | 2024-12-09 17:51 | CONSULTATION REPORT - RESIDENT ---
Consult Providers to CC Resident Creating Document: JOAO RUSSELL RES History of Present Illness Reason for Admit\Complaint: Respiratory arrest History of Present Illness 64-year-old male patient with past medical history of obesity, hypotension, amphetamine use, heart failure with preserved ejection fraction, CKD, chronic pressure wounds, acute respiratory failure came to the hospital transferred from [facility] after suffering a respiratory arrest. The patient was found cyanotic and unresponsive at [facility]. When the patient was evaluated by charge nurse he was pulseless and code was called. He had ROSC after two rounds of epinephrine and also became responsive squeezing hands with both of his upper extremities to command according to charge nurse. The patient was transferred to [facility] where he arrived awake as well hemodynamically stable. The patient was admitted to ICU. Background history of the patient was that he was initially admitted to [facility] for acute respiratory failure that required a tracheostomy and PEG tube placement and was transferred to [facility]. He was transferred again to [facility] and back to [facility] He required another transferred to [facility] for altered level of consciousness and fevers and was found to have ESBL Proteus pneumonia. He was also notable for TORITO on CKD and was started on renal replacement therapy. He showed some improvements and was transferred back to [facility]. Allergies: Coded Allergies: Penicillins (Verified Allergy, Severe, STOP BREATHING, 12/08/24) honey (Verified Allergy, Severe, SWELLING, 12/08/24) Home Medications Home Medications Active Reported Garfield 5/325 MG (Acetaminophen/Hydrocodone Bitart) 5 Mg/325 Mg Tablet 1 Tab PO Q6H PRN Proventil Nebs* (Albuterol) 2.5 Mg/0.5 Ml Vial.neb 1 Vial NEB Q4H 10 Days Diazepam 5 Mg/Ml Syringe 10 Mg IM BID Budesonide 0.25 Mg/2 Ml Ampul.neb 1 Vial NEB Q12H 30 Days Eliquis (Apixaban) 5 Mg Tablet 1 Tab PO Q12H 30 Days Montelukast Sodium 10 Mg Tablet 1 Tab PO DAILY 30 Days Lidocaine 4 % Adh..patch 1 Patch TOP DAILY 10 Days Levothyroxine Sodium 150 Mcg Tablet 1 Tab PO DAILY 30 Days Insulin Lispro 100 Unit/Ml Vial 1 Unit SQ SLIDING SCALE Gabapentin 100 Mg Capsule 1 Cap PO TID 30 Days Lasix (Furosemide) 40 Mg Tablet 1 Tab PO DAILY 30 Days Formoterol Fumarate 20 Mcg/2 Ml Vial.neb 2 Ml NEB BID Ferrous Sulfate 300 Mg (60 Mg Iron)/5 Ml Liquid 5 Ml PO DAILY 30 Days Famotidine 20 Mg Tablet 1 Tab PO DAILY 30 Days Past Medical History Past Medical History Obesity, hypotension, amphetamine use, heart failure with preserved ejection fraction, CKD, chronic pressure wounds, acute respiratory failure, ESBL Proteus pneumonia. Past Surgical History Surgical History Comment S/p tracheostomy. Exam Vitals: Vital Signs Date Time Temp Pulse Resp B/P (MAP) Pulse Ox O2 Delivery O2 Flow Rate FiO2 12/09/24 17:29 119/54 12/09/24 17:00 21 60 12/09/24 17:00 98.1 75 94 Mechanical Ventilator 12/08/24 13:55 10 Physical exam: General: Patient is currently under sedation due to mechanical ventilation. HEENT: Conjunctive are pink, sclerae clear, no icterus, pupil is equal in both sides, reactive to light, no ear discharge, no pharyngeal erythema or an edema, presence of tracheostomy Neck: Supple, no JVD, no lymphadenopathy and thyromegaly. Chest: Equal air entry on both lungs, diffuse bilateral wheezing. Cardiovascular: S1-S2 regular sinus rhythm and, regular rate, no gallops, no rubs, no murmurs Abdomen: No visible peristalsis, Bowel sounds present on auscultation, soft, nontender, no guarding, no rigidity Extremities: No obvious deformities, 1+ pedal edema, capillary refill intact, peripheral pulsations are intact on both sides Central Nervous System: No focal neurological deficits, 2+ deep tendon reflexes, negative Babinski. Musculoskeletal: No joint swelling, deformities, inflammations. Diagnostic Data Last Recorded Lab Results: 12/09/24 0421 12/09/24 1040 Diagnostic Data: Laboratory Tests Test 12/08/24 14:28 Prothrombin Time 11.8 SECONDS (9.0-12.0) INR International Normalized Ratio 1.2 INR Activated Partial Thromboplast Time 25 SECONDS (22-32) Coagulation Comments Additional Plan Assessment and plan: 64-year-old male patient transferred from [facility] after respiratory arrest. Acute on chronic respiratory failure culminating in cardiac arrest: Cardiac arrest with ROSC: Patient awake alert and responsive. Bronchospasm: Could be due to COPD exacerbation or cardiac asthma: Obstructive sleep apnea: Obesity: Initiated on full support ventilation in light of respiratory distress and wheezing. Troponin levels: [phone]. Currently on DuoNeb q.4h scheduled. Budesonide 0.5 mg b.i.d. IH. On furosemide 60 mg q.6h IV, and metolazone 10 mg per tube q.12 hours. Atrial fibrillation rate controlled: Eliquis 5 mg b.i.d. Normocytic normochromic anemia: Hemoglobin 8.0, hematocrit 24.0, MCV 89.4. On ferrous sulfate 300 mg daily. Chronic kidney disease: Creatinine 1.83, GFR 38. BUN/creatinine ratio 19.7. Continue monitoring CMP. Hypothyroidism: Levothyroxine 150 mg daily. Code status: Full code DVT prophylaxis: The patient is currently on Eliquis Analgesia/sedation: Dexmedetonidine Line/tube: Tracheostomy tube, PIV. GI prophylaxis: Famotidine Nutrition: Tube feeding Prognosis: Guarded Disposition: Continue management by chair lift operator. Joao Zamora Internal Medicine Resident [facility] Date of Service: Dec 09, 2024 Billing Provider: JOSE BRADFORD MD Common Visit Codes: [id number] INP/OBS CARE(HIGH) JOAO RUSSELL, RES Dec 09, 2024 17:51 JOSE BRADFORD MD Dec 09, 2024 20:37
--- NOTE | 2024-12-09 18:43 | CARDIOLOGY REPORT ---
APPROVED REPORT EXAM: Comprehensive 2D, Doppler, and color-flow Echocardiogram. Patient Location: 2013 A Blood Pressure: 107/43 mmHg Heart Rate: 80 bpm Rhythm: SINUS Indications CONGESTIVE HEART FAILURE HYPOTENSION Wire Splicer: unknown Previous echo: none 2D Dimensions IVSd 1.4 (0.7-1.1cm) LVDd 5.9 cm PWd 1.5 (0.7-1.1cm) IVSs 1.8 (0.8-1.2cm) LVDs 4.1 (2.5-4.0cm) PWs 1.7 (0.8-1.2cm) LVOT Diameter 2.13 (1.8-2.4cm) LVEF(%) 59.0 (>50%) Ao Asc Diam.2.63 cmIVC 23.44 mm FS (%) 31.8 % SV 103.9 ml CO 8.4 L/min M-Mode Dimensions Left Atrium(MM) 5.14 (2.5-4.0cm) Aortic Root 3.36 (2.2-3.7cm) Aortic Cusp Exc 2.45 (1.5-2.0cm) MV EPSS 0.6 (<0.5cm) Aortic Valve AoV Peak Gabe. 257.4 cm/s AoV VTI 46.4 cm AO Peak GR. 26.5 mmHg AO Mean GR. 12 mmHg LVOT VTI 23.01 cm LVOT Peak Gabe. 117.1 cm/s GENI(VTI)/BSA 1.77 cm2/m2 GENI (VTI) 1.77 cm2 Mitral Valve MV E Velocity 94.7 cm/s MV Peak Gr. 6 mmHg MV DECEL TIME 232 ms MV A Velocity 105.7 cm/s MV PHT 64 ms E/A Ratio 0.9 MVA (PHT) 3.44 cm2 MV UIlj797.1 cm/s Tricuspid Valve TR P. Velocity 257 cm/s TR Peak Gr. 27 mmHg LEFT VENTRICLE Dilated LV size and low normal function. Moderate concentric hypertrophy. LVEF is 55%. RIGHT VENTRICLE RV appears dilated and hypertrophic with normal systolic function. RVSP is estimated at 37 mmHg. ATRIA LA appears at least mildly dilated. AORTIC VALVE Trileaflet AV appears mildly sclerotic without stenosis or insufficiency. MITRAL VALVE Mild MV annular calcification without stenosis. Trace regurgitation. TRICUSPID VALVE TV appears structurally normal with trace regurgitation. PULMONIC VALVE Normal PV without stenosis, physiologic insufficiency. GREAT VESSELS Aortic root is normal in size. Ascending aorta is normal in size. IVC is dilated and collapses less t calzada 50% with inspiration. PERICARDIUM Normal pericardium. No effusion. Left pleural effusion is present. Other Information Study Quality: Technically limited apical images due to PEG tube, no SSN due to tracheostomy. Conclusion Dilated LV size and low normal function. Moderate concentric hypertrophy. LVEF is 55%. RV appears dilated and hypertrophic with normal systolic function. RVSP is estimated at 37 mmHg. LA appears at least mildly dilated. Trileaflet AV appears mildly sclerotic without stenosis or insufficiency. Mild MV annular calcification without stenosis. Trace regurgitation. TV appears structurally normal with trace regurgitation. Normal pericardium. No effusion. Left pleural effusion is present.
[2024-12-09] MEDS: mineral oil/petrolatum ophthal oint EACHEYE SCH ×2 (20:00→20:16)
[2024-12-09] MEDS: metolazone 2.5mg tablet PEG SCH (20:18)
[2024-12-09] MEDS: GABAPENTIN 300 MG/6 ML oral SOLUTION cup PEG SCH (20:18)
[2024-12-09] MEDS: risperiDONE 0.5mg tablet PEG SCH (20:19)
[2024-12-09] MEDS: famotidine 20mg tablet PEG SCH (20:19)
[2024-12-10] VITALS (44 sets, daily range): BP systolic 85–129; BP diastolic 32–76; PULSE 69–90; RESP 13–24; O2SAT 87–98
[2024-12-10 03:03] LABS: MAGNESIUM 1.6 MG/DL (1.5-2.4)
[2024-12-10 03:18] LABS: ABG HCO3 33.7 mmol/L (21.0-28.0); ABG PCO2 (T) 42.1 mmHg (35.0-48.0); ABG PH (T) 7.522 (7.350-7.450); ABG PO2 (T) 64.5 mmHg (83.0-108.0); ALLEN'S TEST Modified; FCOHb 0.4 % (0.5-1.5); FMetHb 0.1 % (0.0-1.5); FO2Hb 92.5 % (94.0-98.0); MODE ac prvc; PATIENT TEMPERATURE 37.2; PEEP 8 cm H2O; RESPIRATORY RATE 16 b/min; TIDAL VOLUME 400 mL; TOTAL HEMOGLOBIN 8.7 G/dl (13.5-17.5)
--- NOTE | 2024-12-10 05:59 | RADIOLOGY REPORT ---
EXAM: XR Chest, 1 View CLINICAL INDICATION: PLEURAL EFFUSIONS TECHNIQUE: Frontal view of the chest. COMPARISON: DI CHEST,SINGLE VIEW on DOS: 12/09/24, DI CHEST,SINGLE VIEW on DOS: 12/08/24 FINDINGS: LUNGS AND PLEURAL SPACES: Bibasilar atelectasis or pneumonia. No pneumothorax. HEART: Unremarkable. No cardiomegaly. MEDIASTINUM: Unremarkable. Normal mediastinal contour. BONES/JOINTS: Unremarkable. No acute fracture. TUBES, LINES AND DEVICES: Tracheostomy tube in satisfactory position. OTHER FINDINGS: . . IMPRESSION: Bibasilar atelectasis or pneumonia.
[2024-12-10 07:01] LABS: BASOPHILS % (AUTO) 0.3 % (0-1); EOSINOPHILS # (AUTO) 0.1 X10'3 (0-0.9); EOSINOPHILS % (AUTO) 1.8 % (0-6); HEMATOCRIT 24.9 % (42.0-52.0); HEMOGLOBIN 8.4 g/dl (14.0-17.9); LYMPHOCYTES # (AUTO) 0.6 X10'3 (1.1-4.8); LYMPHOCYTES % (AUTO) 7.1 % (21-51); MEAN CORPUSCULAR HEMOGLOBIN 30.1 PG (27.0-31.0); MEAN CORPUSCULAR HGB CONC 33.8 g/dL (33.0-36.5); MEAN CORPUSCULAR VOLUME 89.1 FL (78-98); MEAN PLATELET VOLUME 7.9 FL (7.4-10.4); MONOCYTES # (AUTO) 0.8 X10'3 (0-0.9); MONOCYTES % (AUTO) 10.3 % (2-12); NEUTROPHILS # (AUTO) 6.5 X10'3 (1.8-7.7); NEUTROPHILS % (AUTO) 80.5 % (42-75); PLATELET COUNT 286 X10'3 (140-440); RED CELL DISTRIBUTION WIDTH 16.7 % (11.5-14.5); WHITE BLOOD COUNT 8.1 X10'3 (4.5-11.0)
[2024-12-10 07:24] LABS: ALANINE AMINOTRANSFERASE 22 U/L (12-78); ALBUMIN 2.5 G/DL (3.4-5.0); ALBUMIN/GLOBULIN RATIO 0.6 (1.1-1.5); ALKALINE PHOSPHATASE 82 IU/L (46-116); ANION GAP 9 (8-16); ASPARTATE AMINO TRANSFERASE 17 U/L (10-37); BILIRUBIN,TOTAL 0.3 MG/DL (0.1-1.0); BLOOD UREA NITROGEN 42 MG/DL (7-18); BUN/CREATININE RATIO 19.8 (10.0-20.0); CALCIUM 10.6 MG/DL (8.5-10.1); CHLORIDE 96 MMOL/L (99-107); CREATININE 2.12 MG/DL (0.60-1.10); GLUCOSE 140 MG/DL (70-104); POTASSIUM 3.5 MMOL/L (3.5-5.1); SODIUM 139 MMOL/L (135-145); TOTAL CARBON DIOXIDE 33.8 MMOL/L (24-32); eCRCL 31 ML/MIN; eGFR 32 ML/MIN
[2024-12-10] MEDS: acetaminophen 325mg tablet PEG PRN (07:25)
[2024-12-10 09:03] LABS: ALANINE AMINOTRANSFERASE 19 U/L (12-78); ALBUMIN 2.4 G/DL (3.4-5.0); ALBUMIN/GLOBULIN RATIO 0.5 (1.1-1.5); ALKALINE PHOSPHATASE 82 IU/L (46-116); ANION GAP 6 (8-16); ASPARTATE AMINO TRANSFERASE 21 U/L (10-37); BILIRUBIN,TOTAL 0.3 MG/DL (0.1-1.0); BLOOD UREA NITROGEN 47 MG/DL (7-18); BUN/CREATININE RATIO 22.4 (10.0-20.0); CALCIUM 10.5 MG/DL (8.5-10.1); CHLORIDE 96 MMOL/L (99-107); GLUCOSE 148 MG/DL (70-104); POTASSIUM 3.7 MMOL/L (3.5-5.1); SODIUM 138 MMOL/L (135-145); TOTAL CARBON DIOXIDE 35.7 MMOL/L (24-32); TOTAL PROTEIN 6.9 G/DL (6.4-8.2); eCRCL 31 ML/MIN; eGFR 32 ML/MIN
[2024-12-10] MEDS: magnesium sulf-water 4G/100mL 100 ML IV ONE (10:05)
[2024-12-10] MEDS: POTASSIUM CHLORIDE 20 MEQ/15 ML oral solution PO ONE (10:05)
[2024-12-10] MEDS ORDERED: risperiDONE 2mg tablet PO SCH (10:52)
[2024-12-10] MEDS ORDERED: risperiDONE 2mg tablet PEG SCH ×2 (10:55)
[2024-12-10] MEDS ORDERED: risperiDONE 0.5mg tablet PEG SCH (11:02)
[2024-12-10] MEDS: risperiDONE 0.5mg tablet PEG SCH (11:46)
--- NOTE | 2024-12-10 13:40 | PROGRESS NOTE ---
Subjective Subjective Patient is seen today. On full mechanical ventilation support via tracheostomy. FiO2 from 70% down to 50%. Peep is 8. Chest x-ray showing interval worsening of bilateral pulmonary infiltrates suggestive of pulmonary edema. Reason for visit: Pulmonary critical care follow-up Reviewed: Care Plan, H&P, Labs, Radiology Daily Progress Note Exam Vitals Vital Signs Date Time Temp Pulse Resp B/P (MAP) Pulse Ox O2 Delivery O2 Flow Rate FiO2 12/10/24 12:05 99.5 78 18 101/48 (65) 91 Mechanical Ventilator 50 12/08/24 13:55 10 Result Diagram: 12/10/2433 12/10/24632 Exam General: Awake alert and in respiratory distress new line HEENT examination: N/C/AT, PERRLA, EOMI Neck: Tracheostomy in place, no lymphadenopathy Chest: Symmetric expansion bilaterally. Pulmonary: Bilateral diffuse wheezing, no rales and no rhonchi. Abdomen: Soft nontender and no organomegaly. Extremities: 1+ edema Neurological examination: Grossly nonfocal. Results Coagulation Studies Laboratory Tests Test 12/08/24 14:28 Prothrombin Time 11.8 SECONDS (9.0-12.0) INR International Normalized Ratio 1.2 INR Activated Partial Thromboplast Time 25 SECONDS (22-32) Coagulation Comments VTE VTE Risk Score VTE Risk Score Reference Ranges: Score 0-1 = Low Risk (Aggressive mobilization; early ambulation; no VTE prophylaxis required) Score 2: Moderate Risk (Intermittent/Pneumatic Compression Device OR Lovenox/Heparin/Coumadin) Score 3-4: High Risk (Intermittent/Pneumatic Compression Device AND Lovenox/Heparin/Coumadin) Score > or = 5: Highest Risk (Intermittent/Pneumatic Compression Device AND Lovenox/Heparin/Coumadin) Assessment/Plan Plan Acute on chronic respiratory failure culminating in cardiac arrest: Chest x-ray improved. Acute coronary syndrome Cardiac arrest with ROSC: Patient awake alert and responsive. Atrial fibrillation: Currently in sinus rhythm Bronchospasm: Could be due to COPD exacerbation or cardiac asthma Azotemia: Slightly worse with the diuretic therapy. Obesity Obstructive sleep apnea Plan: Continue full support ventilation via tracheostomy in light of ARDS i.e. currently on a PEEP of 8 and FiO2 of 50%. Continue bronchodilator therapy with albuterol/ipratropium bromide q.4 hours. Also continue formoterol and budesonide. Continue diuretic therapy to Lasix 60 mg IV q.6 hours and metolazone 10 mg per tube q.12 hours. Follow electrolytes. Complete cardiac enzyme assays. No need for IV heparin/aspirin at this point. Echocardiography results pending. Continue apixaban for atrial fibrillation. Continue all other hospital medications. Code status: Full code Sedation: No continue sedation ordered. Analgesia: Avoid use of narcotics and try to use p.r.n. Tylenol. Nutrition: To be addressed by dietary. Overall prognosis: Guarded Critical care time in excess of 35 minutes. Expected Outcome/Goals Expected Outcomes/Goals: maintain stable wt, TF tolerance, bowel regularity, optimal skin integrity ANNA DUBON MD Dec 10, 2024 13:40
[2024-12-10 17:18] LABS: ALBUMIN 2.4 G/DL (3.4-5.0); ANION GAP 4 (8-16); BLOOD UREA NITROGEN 54 MG/DL (7-18); BUN/CREATININE RATIO 23.4 (10.0-20.0); CALCIUM 10.3 MG/DL (8.5-10.1); CHLORIDE 96 MMOL/L (99-107); CREATININE 2.31 MG/DL (0.60-1.10); GLUCOSE 154 MG/DL (70-104); MAGNESIUM 2.8 MG/DL (1.5-2.4); POTASSIUM 3.8 MMOL/L (3.5-5.1); SODIUM 137 MMOL/L (135-145); TOTAL CARBON DIOXIDE 37.5 MMOL/L (24-32); eCRCL 28 ML/MIN; eGFR 29 ML/MIN
--- NOTE | 2024-12-10 19:18 | PROGRESS NOTE- Residence ---
Progress Note - Resident Providers to CC Resident Creating Document: JOAO RUSSELL, NEVAEH ~ Antibiotic Timeout Antibiotic Ordered?: Yes Subjective The patient has been evaluated at the bedside. The patient remained under sedation due to mechanical ventilation via tracheostomy. Objective Vital Signs Date Time Temp Pulse Resp B/P (MAP) Pulse Ox O2 Delivery O2 Flow Rate FiO2 12/10/24 19:00 100.4 79 20 113/51 (71) 92 Mechanical Ventilator 55 12/08/24 13:55 10 Physical exam: General: Patient is currently under sedation due to mechanical ventilation. HEENT: Conjunctive are pink, sclerae clear, no icterus, pupil is equal in both sides, reactive to light, no ear discharge, no pharyngeal erythema or an edema, presence of tracheostomy Neck: Supple, no JVD, no lymphadenopathy and thyromegaly. Chest: Equal air entry on both lungs, diffuse bilateral wheezing. Cardiovascular: S1-S2 regular sinus rhythm and, regular rate, no gallops, no rubs, no murmurs Abdomen: No visible peristalsis, Bowel sounds present on auscultation, soft, nontender, no guarding, no rigidity Extremities: No obvious deformities, 1+ pedal edema, capillary refill intact, peripheral pulsations are intact on both sides Central Nervous System: No focal neurological deficits, 2+ deep tendon reflexes, negative Babinski. Musculoskeletal: No joint swelling, deformities, inflammations. Result Diagram: 12/10/24 0633 12/10/24 1640 Coagulation Studies Laboratory Tests Test 12/08/24 14:28 Prothrombin Time 11.8 SECONDS (9.0-12.0) INR International Normalized Ratio 1.2 INR Activated Partial Thromboplast Time 25 SECONDS (22-32) Coagulation Comments Assessment Assessment 64-year-old male patient transferred from [facility] after respiratory arrest. Plan Plan Acute on chronic respiratory failure culminating in cardiac arrest: Cardiac arrest with ROSC: Patient awake alert and responsive. Bronchospasm: Could be due to COPD exacerbation or cardiac asthma: Obstructive sleep apnea: Obesity: Initiated on full support ventilation in light of respiratory distress and wheezing. Troponin levels: [phone]. Currently on DuoNeb q.4h scheduled. Budesonide 0.5 mg b.i.d. IH. On furosemide 60 mg q.6h IV, and metolazone 10 mg per tube q.12 hours. 12/10/2024: Discontinued furosemide and metolazone. Currently on montelukast 10 mg daily, DuoNeb q.4h scheduled, but genocide 5 mg b.i.d., Atrial fibrillation rate controlled: Eliquis 5 mg b.i.d. Normocytic normochromic anemia: Hemoglobin 8.0, hematocrit 24.0, MCV 89.4. On ferrous sulfate 300 mg daily. 12/10/2024: Continuing ferrous sulfate 300 mg daily. Chronic kidney disease: Creatinine 1.83, GFR 38. BUN/creatinine ratio 19.7. Continue monitoring CMP. Hypothyroidism: Levothyroxine 150 mg daily. Anxiety/agitation: The patient is currently on risperidone 3 mg daily. Code status: Full code DVT prophylaxis: The patient is currently on Eliquis Analgesia/sedation: Dexmedetonidine Line/tube: Tracheostomy tube, PIV. GI prophylaxis: Famotidine Nutrition: Tube feeding Prognosis: Guarded Disposition: Continue management by flight deck officer. Joao Zamora Internal Medicine Resident [facility] Date of Service: Dec 10, 2024 Billing Provider: JOSE BRADFORD MD Common Visit Codes: [id number] INP/OBS CARE(HIGH) JOAO RUSSELL, RES Dec 10, 2024 19:18 JOSE BRADFORD MD Dec 11, 2024 21:26
[2024-12-11] VITALS (48 sets, daily range): BP systolic 10–145; BP diastolic 34–64; PULSE 69–125; RESP 15–27; O2SAT 89–100
[2024-12-11 01:33] LABS: BASOPHILS % (AUTO) 0.5 % (0-1); EOSINOPHILS # (AUTO) 0.2 X10'3 (0-0.9); EOSINOPHILS % (AUTO) 2.4 % (0-6); HEMOGLOBIN 8.2 g/dl (14.0-17.9); LYMPHOCYTES # (AUTO) 0.9 X10'3 (1.1-4.8); LYMPHOCYTES % (AUTO) 12.6 % (21-51); MEAN CORPUSCULAR HEMOGLOBIN 30.4 PG (27.0-31.0); MEAN CORPUSCULAR HGB CONC 34.1 g/dL (33.0-36.5); MEAN CORPUSCULAR VOLUME 88.9 FL (78-98); MEAN PLATELET VOLUME 8.1 FL (7.4-10.4); MONOCYTES # (AUTO) 0.9 X10'3 (0-0.9); NEUTROPHILS # (AUTO) 4.9 X10'3 (1.8-7.7); NEUTROPHILS % (AUTO) 71.5 % (42-75); PLATELET COUNT 272 X10'3 (140-440); RED CELL DISTRIBUTION WIDTH 16.8 % (11.5-14.5); WHITE BLOOD COUNT 6.8 X10'3 (4.5-11.0)
[2024-12-11 01:44] LABS: ALBUMIN 2.2 G/DL (3.4-5.0); ANION GAP 6 (8-16); BLOOD UREA NITROGEN 52 MG/DL (7-18); BUN/CREATININE RATIO 23.4 (10.0-20.0); CALCIUM 10.2 MG/DL (8.5-10.1); CHLORIDE 100 MMOL/L (99-107); CREATININE 2.22 MG/DL (0.60-1.10); GLUCOSE 142 MG/DL (70-104); MAGNESIUM 2.8 MG/DL (1.5-2.4); POTASSIUM 3.6 MMOL/L (3.5-5.1); SODIUM 143 MMOL/L (135-145); TOTAL CARBON DIOXIDE 37.2 MMOL/L (24-32); eCRCL 30 ML/MIN; eGFR 30 ML/MIN
[2024-12-11 03:51] LABS: ABG BASE EXCESS 9.9 mmol/L (-2.0-3.0); ABG HCO3 34.1 mmol/L (21.0-28.0); ABG OXYGEN SATURATION 90.7 % (94.0-98.0); ABG PCO2 (T) 44.8 mmHg (35.0-48.0); ABG PO2 (T) 59.1 mmHg (83.0-108.0); ALLEN'S TEST Modified; FCOHb 0.4 % (0.5-1.5); FHHb 9.2 % (0.0-5.0); FMetHb 0.3 % (0.0-1.5); FO2Hb 90.1 % (94.0-98.0); MODE acprvc; PATIENT TEMPERATURE 37.3; PEEP 8 cm H2O; RESPIRATORY RATE 16 b/min; TIDAL VOLUME 400 mL; TOTAL HEMOGLOBIN 10.9 G/dl (13.5-17.5)
--- NOTE | 2024-12-11 11:19 | PROGRESS NOTE ---
Subjective Subjective The patient has been evaluated at the bedside. The patient remained under sedation due to mechanical ventilation via tracheostomy. Reason for visit: Pulmonary critical care follow-up Reviewed: Care Plan, H&P, Labs, Radiology Daily Progress Note Exam Vitals Vital Signs Date Time Temp Pulse Resp B/P (MAP) Pulse Ox O2 Delivery O2 Flow Rate FiO2 12/11/24 11:00 22 55 12/11/24 11:00 99.1 92 135/58 (83) 91 Mechanical Ventilator 12/08/24 13:55 10 Result Diagram: 12/11/24 0120 12/11/24 0120 Exam General: Awake alert and in respiratory distress new line HEENT examination: N/C/AT, PERRLA, EOMI Neck: Tracheostomy in place, no lymphadenopathy Chest: Symmetric expansion bilaterally. Pulmonary: Bilateral diffuse wheezing, no rales and no rhonchi. Abdomen: Soft nontender and no organomegaly. Extremities: 1+ edema Neurological examination: Grossly nonfocal. Results Coagulation Studies Laboratory Tests Test 12/08/24 14:28 Prothrombin Time 11.8 SECONDS (9.0-12.0) INR International Normalized Ratio 1.2 INR Activated Partial Thromboplast Time 25 SECONDS (22-32) Coagulation Comments VTE VTE Risk Score VTE Risk Score Reference Ranges: Score 0-1 = Low Risk (Aggressive mobilization; early ambulation; no VTE prophylaxis required) Score 2: Moderate Risk (Intermittent/Pneumatic Compression Device OR Lovenox/Heparin/Coumadin) Score 3-4: High Risk (Intermittent/Pneumatic Compression Device AND Lovenox/Heparin/Coumadin) Score > or = 5: Highest Risk (Intermittent/Pneumatic Compression Device AND Lovenox/Heparin/Coumadin) Assessment/Plan Assessment 64-year-old male patient transferred from [facility] after respiratory arrest. Plan Acute on chronic respiratory failure culminating in cardiac arrest: Chest x-ray improved. Acute coronary syndrome Cardiac arrest with ROSC: Patient awake alert and responsive. Atrial fibrillation: Currently in sinus rhythm Bronchospasm: Could be due to COPD exacerbation or cardiac asthma Azotemia: Slightly worse with the diuretic therapy. Obesity Obstructive sleep apnea Plan: Continue full support ventilation via tracheostomy in light of ARDS i.e. currently on a PEEP of 8 and FiO2 of 50%. Continue bronchodilator therapy with albuterol/ipratropium bromide q.4 hours. Also continue formoterol and budesonide. Follow electrolytes. Complete cardiac enzyme assays. No need for IV heparin/aspirin at this point. Echocardiography results pending. Continue apixaban for atrial fibrillation. Continue all other hospital medications. Code status: Full code Sedation: No continue sedation ordered. Analgesia: Avoid use of narcotics and try to use p.r.n. Tylenol. Nutrition: To be addressed by dietary. Overall prognosis: Guarded Critical care time in excess of 35 minutes. Expected Outcome/Goals Expected Outcomes/Goals: maintain stable wt, TF tolerance, bowel regularity, optimal skin integrity ANNA DUBON MD Dec 11, 2024 11:19
[2024-12-11] MEDS: acetaminophen 325mg tablet PEG PRN (15:13)
--- NOTE | 2024-12-11 19:43 | PROGRESS NOTE- Residence ---
Progress Note - Resident Providers to CC Resident Creating Document: JOAO RUSSELL, NEVAEH ~ Antibiotic Timeout Antibiotic Ordered?: Yes Subjective The patient has been evaluated at the bedside. The patient remained under sedation due to mechanical ventilation via tracheostomy. Objective Vital Signs Date Time Temp Pulse Resp B/P (MAP) Pulse Ox O2 Delivery O2 Flow Rate FiO2 12/11/24 19:03 106 19 Mechanical Ventilator 55 12/11/24 19:01 96 12/11/24 19:00 99.9 145/63 (90) 12/08/24 13:55 10 Physical exam: General: Patient is currently under sedation due to mechanical ventilation. HEENT: Conjunctive are pink, sclerae clear, no icterus, pupil is equal in both sides, reactive to light, no ear discharge, no pharyngeal erythema or an edema, presence of tracheostomy Neck: Supple, no JVD, no lymphadenopathy and thyromegaly. Chest: Equal air entry on both lungs, diffuse bilateral wheezing. Cardiovascular: S1-S2 regular sinus rhythm and, regular rate, no gallops, no rubs, no murmurs Abdomen: No visible peristalsis, Bowel sounds present on auscultation, soft, nontender, no guarding, no rigidity Extremities: No obvious deformities, 1+ pedal edema, capillary refill intact, peripheral pulsations are intact on both sides Central Nervous System: No focal neurological deficits, 2+ deep tendon reflexes, negative Babinski. Musculoskeletal: No joint swelling, deformities, inflammations. Result Diagram: 12/11/24 0120 12/11/24 0120 Coagulation Studies Laboratory Tests Test 12/08/24 14:28 Prothrombin Time 11.8 SECONDS (9.0-12.0) INR International Normalized Ratio 1.2 INR Activated Partial Thromboplast Time 25 SECONDS (22-32) Coagulation Comments Assessment Assessment 64-year-old male patient transferred from [facility] after respiratory arrest. Plan Plan Acute on chronic respiratory failure culminating in cardiac arrest: Cardiac arrest with ROSC: Patient awake alert and responsive. Bronchospasm: Could be due to COPD exacerbation or cardiac asthma: Obstructive sleep apnea: Obesity: Initiated on full support ventilation in light of respiratory distress and wheezing. Troponin levels: [phone]. Currently on DuoNeb q.4h scheduled. Budesonide 0.5 mg b.i.d. IH. On furosemide 60 mg q.6h IV, and metolazone 10 mg per tube q.12 hours. 12/10/2024: Discontinued furosemide and metolazone. Currently on montelukast 10 mg daily, DuoNeb q.4h scheduled, budesonide 5 mg b.i.d. 12/11/2024: Currently on montelukast 10 mg daily, DuoNeb q.4h scheduled, budesonide 5 mg b.i.d. Atrial fibrillation rate controlled: Eliquis 5 mg b.i.d. Normocytic normochromic anemia: Hemoglobin 8.0, hematocrit 24.0, MCV 89.4. On ferrous sulfate 300 mg daily. Chronic kidney disease: Creatinine 1.83, GFR 38. BUN/creatinine ratio 19.7. Continue monitoring CMP. Hypothyroidism: Levothyroxine 150 mg daily. Anxiety/agitation: The patient is currently on risperidone 3 mg daily. Code status: Full code DVT prophylaxis: The patient is currently on Eliquis Analgesia/sedation: Dexmedetonidine Line/tube: Tracheostomy tube, PIV. GI prophylaxis: Famotidine Nutrition: Tube feeding Prognosis: Guarded Disposition: Continue management by composite bond worker. Joao Zamora Internal Medicine Resident [facility] Date of Service: Dec 11, 2024 Billing Provider: JOSE BRADFORD MD Common Visit Codes: [id number] INP/OBS CARE(HIGH) JOAO RUSSELL, RES Dec 11, 2024 19:43 JOSE BRADFORD MD Dec 11, 2024 21:25
[2024-12-11] MEDS: ondansetron/PF 4mg/2ml inj IV PRN (20:03)
[2024-12-11] MEDS ORDERED: diazepam inj 5 MG/ML inj. IV PRN (20:15)
[2024-12-11] MEDS: OLANZAPINE 5 MG TABLET PEG ONE (20:32)
[2024-12-11] MEDS: traMADol 50MG tablet PEG ONE (23:20)
--- NOTE | 2024-12-11 23:38 | PROGRESS NOTE ---
Progress Note Dictate Providers to CC ~ Antibiotic Ordered?: Yes Objective Vitals Vital Signs Date Time Temp Pulse Resp B/P (MAP) Pulse Ox O2 Delivery O2 Flow Rate FiO2 12/11/24 23:08 110 21 96 Ventilator+ 50 12/11/24 22:00 100.6 142/61 (88) 12/08/24 13:55 10 Lab Results: 12/11/24 0120 12/11/24 0120 Coagulation Studies Laboratory Tests Test 12/08/24 14:28 Prothrombin Time 11.8 SECONDS (9.0-12.0) INR International Normalized Ratio 1.2 INR Activated Partial Thromboplast Time 25 SECONDS (22-32) Coagulation Comments Problem\Assessment\Plan Additional Plan Night time TeleICU coverage Patient seen and evaluated using HIPPA compliant AV device Admitted for respiratory failure on chronic trach Possible asthma/COPD exacerbation Evolving PNA Now having low grade temp On mech ventilation via Trach Labs and images reviewed Continue mechanical ventilation Antibiotics for PNA ? UTI Bronchodialator Urinalysis CCT 60mins Discussed with HORTENCIA Pandya, MD PANDYA,CARMITA Lopez MD Dec 11, 2024 23:38
[2024-12-11] MEDS: mag hydrox/Alum hydrox/simeth 30ml oral suspension PEG PRN (23:58)
[2024-12-11] MEDS: CefTRIAXone/D5W-Rocephin 1gm 50 ML IV SCH (23:58)
[2024-12-12] VITALS (20 sets, daily range): BP systolic 100–128; BP diastolic 40–78; PULSE 90–113; RESP 16–23; O2SAT 92–98
[2024-12-12 02:17] LABS: BASOPHILS % (AUTO) 0.3 % (0-1); BILIRUBIN,URINE NEGATIVE (Neg); CLARITY,URINE CLOUDY (Clear); COLOR,URINE YELLOW (Yellow); EOSINOPHILS # (AUTO) 0.1 X10'3 (0-0.9); EOSINOPHILS % (AUTO) 1.9 % (0-6); GLUCOSE, URINE NEGATIVE (Neg); HEMATOCRIT 22.3 % (42.0-52.0); HEMOGLOBIN 7.5 g/dl (14.0-17.9); KETONES,URINE NEGATIVE (Neg); LEUKOCYTE ESTERASE ,URINE LARGE (Neg); LYMPHOCYTES # (AUTO) 0.9 X10'3 (1.1-4.8); LYMPHOCYTES % (AUTO) 11.9 % (21-51); MEAN CORPUSCULAR HEMOGLOBIN 30.3 PG (27.0-31.0); MEAN CORPUSCULAR HGB CONC 33.5 g/dL (33.0-36.5); MEAN CORPUSCULAR VOLUME 90.6 FL (78-98); MEAN PLATELET VOLUME 7.8 FL (7.4-10.4); MONOCYTES # (AUTO) 1.1 X10'3 (0-0.9); MONOCYTES % (AUTO) 14.7 % (2-12); NEUTROPHILS # (AUTO) 5.4 X10'3 (1.8-7.7); NEUTROPHILS % (AUTO) 71.2 % (42-75); NITRITES, URINE NEGATIVE (Neg); OCCULT BLOOD,URINE SMALL (Neg); PH,URINE 8.5 (4.8-8.0); PLATELET COUNT 296 X10'3 (140-440); PROTEIN,URINE 100 mg/dl (Neg); RED BLOOD COUNT 2.46 X10'6 (4.70-6.10); RED CELL DISTRIBUTION WIDTH 16.8 % (11.5-14.5); UROBILINOGEN,URINE 0.2 E.U/dL (0.2-1.0); WHITE BLOOD COUNT 7.5 X10'3 (4.5-11.0)
[2024-12-12 02:20] LABS: UA COLLECTION TYPE FOLEY CATH
[2024-12-12 02:28] LABS: SQUAMOUS EPITHELIAL CELL,UR FEW /LPF (FEW)
[2024-12-12 02:29] LABS: BACTERIA,URINE 2+ /HPF (Neg); MUCUS STRANDS FEW /LPF (Neg)
[2024-12-12 02:46] LABS: ALANINE AMINOTRANSFERASE 14 U/L (12-78); ALBUMIN 2.3 G/DL (3.4-5.0); ALBUMIN/GLOBULIN RATIO 0.5 (1.1-1.5); ALKALINE PHOSPHATASE 77 IU/L (46-116); ANION GAP 10 (8-16); ASPARTATE AMINO TRANSFERASE 14 U/L (10-37); BILIRUBIN,TOTAL 0.3 MG/DL (0.1-1.0); BLOOD UREA NITROGEN 64 MG/DL (7-18); BUN/CREATININE RATIO 28.7 (10.0-20.0); CALCIUM 9.1 MG/DL (8.5-10.1); CHLORIDE 99 MMOL/L (99-107); CREATININE 2.23 MG/DL (0.60-1.10); GLUCOSE 145 MG/DL (70-104); MAGNESIUM 2.6 MG/DL (1.5-2.4); POTASSIUM 3.6 MMOL/L (3.5-5.1); PREALBUMIN 16.2 MG/DL (19-36); SODIUM 142 MMOL/L (135-145); TOTAL CARBON DIOXIDE 32.9 MMOL/L (24-32); TOTAL PROTEIN 6.8 G/DL (6.4-8.2); eCRCL 29 ML/MIN; eGFR 30 ML/MIN
--- NOTE | 2024-12-12 06:44 | RADIOLOGY REPORT ---
CHEST RADIOGRAPH Indication: ET Tube Placement Technique: Single frontal view of the chest was obtained Comparison: DI CHEST,SINGLE VIEW on DOS: 12/10/24 FINDINGS: Lines and Tubes: Tracheostomy tube in place. Lungs: Bibasilar airspace disease, increased. Pleura: Bilateral pleural effusions. No pneumothorax. Cardiomediastinal contours: Stable cardiomegaly. Bones: No acute osseous abnormality. IMPRESSION: 1. Bibasilar airspace disease and bilateral pleural effusions increased since prior study.
[2024-12-12] MEDS: OLANZAPINE 5 MG TABLET PEG SCH (07:57)
--- NOTE | 2024-12-12 12:49 | DISCHARGE SUMMARY ---
Discharge Summary Providers to CC ~ Discharge Summary Admission Diagnosis: Acute on chronic respiratory failure, status post respiratory arrest Hospital Course DATE OF ADMISSION:12/08/2024 DATE OF DISCHARGE:12/12/2024 Discharge Diagnosis\Comment: Diastolic heart failure, acute on chronic respiratory failure secondary to diastolic heart failure Operations\Procedures: None Consultants: Hospitalist Complications: Cardiac arrest at [facility]. Condition on DC: Stable for transfer Discharge Summary: 64-year-old male who was transferred from [facility] after suffering a respiratory arrest. Charge nurse reports that the patient started having some oxygen desaturations on his telemetry and when they went to check on the patient, patient was found to be cyanotic and unresponsive with humidified trach collar off. He was pulseless and a code was called. He had ROSC after two rounds of epinephrine and also became responsive i.e. squeezing hands with both of his upper extremities to command according to the charge nurse. He was then transferred to [facility] where he arrived awake alert and commanding as well as hemodynamically stable . I was consulted to admit the patient to the ICU. Background history of the patient was that he was initially admitted to [facility] for acute respiratory failure that required a tracheostomy and PEG tube placement and was transferred to [facility]. He was transferred again to [facility] and back to [facility] He required another transferred to [facility] for altered level of consciousness and fevers and was found to have ESBL Proteus pneumonia. He was also notable for TORITO on CKD and was started on renal replacement therapy. He showed some improvements and was transferred back to [facility]. The patient was admitted to ICU after initiation of mechanical ventilation in the emergency room for respiratory distress i.e. tachypnea in the mid 30s and increased oxygen demand with a chest x-ray highly suggestive of congestive heart failure. He was diagnosed with acute on chronic hypercapnic and hypoxemic res piratory failure, non-STEMI and mild hypocalcemia. The patient's oxygen demand increased after admission to the ICU up to 80% and chest x-ray also showed worsening and highly suggestive of congestive heart failure. Diuretic therapy was initiated with the improvement of the patient's chest x-ray as well as decrease of oxygen demand down to 50% from 80% and PEEP down from 10 to 8 cm of water. Diuretic therapy was stopped because of worsening azotemia. Nutritional support was afforded with tube feedings via PEG tube. Dietary consultation was obtained. There was no need for antibiotic therapy. Blood cultures and respiratory cultures were without any growth. The patient will be transferred back to [facility] today. Medicine reconciliation has been reviewed and signed. I will also continue to follow this patient at [facility]. *Problems/Diagnosis: (1) Diastolic heart failure (2) Acute and chronic respiratory failure Status: Acute (3) Hypercalcemia Status: Acute (4) Non-ST elevation IL (NSTEMI) Status: Acute (5) Acute and chronic respiratory failure with hypercapnia Status: Acute Total Time Spent on D/C: > 30 Minutes ANNA DUBON MD Dec 12, 2024 12:46
--- NOTE | 2024-12-12 19:41 | PROGRESS NOTE- Residence ---
Progress Note - Resident Providers to CC Resident Creating Document: JOAO RUSSELL, NEVAEH ~ Antibiotic Timeout Antibiotic Ordered?: Yes Subjective The patient has been evaluated at the bedside. Improving. Objective Vital Signs Date Time Temp Pulse Resp B/P (MAP) Pulse Ox O2 Delivery O2 Flow Rate FiO2 12/12/24 10:00 99.0 102 19 113/48 (69) 96 Mechanical Ventilator 55 12/08/24 13:55 10 Physical exam: General: The patient is currently under mechanical ventilation through tracheostomy tube. HEENT: Conjunctive are pink, sclerae clear, no icterus, pupil is equal in both sides, reactive to light, no ear discharge, no pharyngeal erythema or an edema, presence of tracheostomy Neck: Supple, no JVD, no lymphadenopathy and thyromegaly. Chest: Equal air entry on both lungs, diffuse bilateral wheezing. Cardiovascular: S1-S2 regular sinus rhythm and, regular rate, no gallops, no rubs, no murmurs Abdomen: No visible peristalsis, Bowel sounds present on auscultation, soft, nontender, no guarding, no rigidity Extremities: No obvious deformities, 1+ pedal edema, capillary refill intact, peripheral pulsations are intact on both sides Central Nervous System: No focal neurological deficits, 2+ deep tendon reflexes, negative Babinski. Musculoskeletal: No joint swelling, deformities, inflammations. Result Diagram: 12/12/24 0145 12/12/24 0145 Coagulation Studies Laboratory Tests Test 12/08/24 14:28 Prothrombin Time 11.8 SECONDS (9.0-12.0) INR International Normalized Ratio 1.2 INR Activated Partial Thromboplast Time 25 SECONDS (22-32) Coagulation Comments Assessment Assessment 64-year-old male patient transferred from [facility] after respiratory arrest. Plan Plan Acute on chronic respiratory failure culminating in cardiac arrest: Cardiac arrest with ROSC: Patient awake alert and responsive. Bronchospasm: Could be due to COPD exacerbation or cardiac asthma: Obstructive sleep apnea: Obesity: Initiated on full support ventilation in light of respiratory distress and wheezing. Troponin levels: [phone]. Currently on DuoNeb q.4h scheduled. Budesonide 0.5 mg b.i.d. IH. On furosemide 60 mg q.6h IV, and metolazone 10 mg per tube q.12 hours. 12/10/2024: Discontinued furosemide and metolazone. Currently on montelukast 10 mg daily, DuoNeb q.4h scheduled, budesonide 5 mg b.i.d. 12/11/2024: Currently on montelukast 10 mg daily, DuoNeb q.4h scheduled, budesonide 5 mg b.i.d. 12/12/2024: The patient will be discharged to [facility] from ICU today. Atrial fibrillation rate controlled: Eliquis 5 mg b.i.d. Normocytic normochromic anemia: Hemoglobin 8.0, hematocrit 24.0, MCV 89.4. On ferrous sulfate 300 mg daily. Chronic kidney disease: Creatinine 1.83, GFR 38. BUN/creatinine ratio 19.7. Continue monitoring CMP. Hypothyroidism: Levothyroxine 150 mg daily. Anxiety/agitation: The patient is currently on risperidone 3 mg daily. Code status: Full code DVT prophylaxis: The patient is currently on Eliquis Analgesia/sedation: Dexmedetonidine Line/tube: Tracheostomy tube, PIV. GI prophylaxis: Famotidine Nutrition: Tube feeding Prognosis: Guarded Disposition: Continue management by relations liaison. Joao Zamora Internal Medicine Resident [facility] Date of Service: Dec 12, 2024 Billing Provider: JOSE BRADFORD MD Common Visit Codes: [id number] INP/OBS CARE(HIGH) JOAO RUSSELL, RES Dec 12, 2024 19:41 JOSE BRADFROD MD Dec 12, 2024 21:56
[2024-12-13] MEDS ORDERED: levoTHYROXINE 75mcg tablet PEG SCH (07:00)
== END 2024-12-12 10:44 | DRG 133 ==
LOC: ER 13:16 → ED HOLD 16:53 → EEVIPCON 16:53 → CICU 2S 18:15
PROVIDERS: ADMIT Internal Medicine Critical Care Medicine; ATTEND Internal Medicine Critical Care Medicine
PROC: 5A1945Z Respiratory Ventilation, 24-96 Consecutive Hours (ICD-10-PCS; principal; 2024-12-08)
PROC: 05H933Z Insertion of Infusion Device into Right Brachial Vein, Percutaneous Approach (ICD-10-PCS; 2024-12-09)
PROC: B54MZZA Ultrasonography of Right Upper Extremity Veins, Guidance (ICD-10-PCS; 2024-12-09)
PROC: B54MZZA Ultrasonography of Right Upper Extremity Veins, Guidance (ICD-10-PCS; 2024-12-10)
PROC: 05HD33Z Insertion of Infusion Device into Right Cephalic Vein, Percutaneous Approach (ICD-10-PCS; 2024-12-10)
DX: J96.21 Acute and chronic respiratory failure with hypoxia (principal); I46.9 Cardiac arrest, cause unspecified; I21.4 Non-ST elevation (NSTEMI) myocardial infarction; J18.9 Pneumonia, unspecified organism; N17.9 Acute kidney failure, unspecified; E11.22 Type 2 diabetes mellitus with diabetic chronic kidney disease; J44.1 Chronic obstructive pulmonary disease with (acute) exacerbation; I50.32 Chronic diastolic (congestive) heart failure; D64.9 Anemia, unspecified; F41.9 Anxiety disorder, unspecified; E83.52 Hypercalcemia; I48.91 Unspecified atrial fibrillation; N18.9 Chronic kidney disease, unspecified; J96.22 Acute and chronic respiratory failure with hypercapnia; G47.33 Obstructive sleep apnea (adult) (pediatric); Z88.0 Allergy status to penicillin; Z93.1 Gastrostomy status; Z87.891 Personal history of nicotine dependence
CPT/HCPCS: 36410; 36415; 36600; 71045; 76937; 80048; 80053; 80076; 81001; 82330; 82803; 82948; 83036; 83605; 83735; 83880; 84100; 84132; 84134; 84145; 84484; 85018; 85025; 85610; 85730; 87040; 87070; 87081; 93005; 93306; 94002; 94003; 94640; 94760; 94799; 96365; 99291; A4333; A4623; A4628; A5200; A6154; A6213; A6250; A6258; A6260; A6449; A7015; C1751; C1758; G0378; J0696; J1815; J1938; J2405; J3475; J3480; J3490; J7040; J7050

== ENCOUNTER 2024-12-18 21:47 | Inpatient (IN) | payer MEDICAID ==
[~2024-12-18] VITALS: Ht 157.5 cm; Wt 120.6 kg
[~2024-12-18 21:47] MED LIST: ALB0.5UD NEB; APIX5TAB3 PO; BUDE0.256 NEB; FAMO20TA8 PO; FER300L PO; FORM20VI4 NEB; FURO-149 IV; GABA-530 PO; HYDR-3965 PO; INSU100V49 SQ; LEVO150T8 PO; LIDO1ADH78 TOP; MONT-40 PO; VANCOMYCIN 2GM/400ML H20 (PEG) 400 ML IV ONE; [UNRECOGNIZED DRUG - CODE] IM
[2024-12-18 21:59] VITALS: BP 77/38; PULSE 86; RESP 18; O2SAT 95
[2024-12-18 22:14] LABS: BASOPHILS # (AUTO) 0.1 X10'3 (0-0.2); BASOPHILS % (AUTO) 0.6 % (0-1); EOSINOPHILS # (AUTO) 0.1 X10'3 (0-0.9); EOSINOPHILS % (AUTO) 0.4 % (0-6); HEMATOCRIT 22.7 % (42.0-52.0); HEMOGLOBIN 7.4 g/dl (14.0-17.9); LYMPHOCYTES # (AUTO) 0.5 X10'3 (1.1-4.8); LYMPHOCYTES % (AUTO) 3.1 % (21-51); MEAN CORPUSCULAR HEMOGLOBIN 29.5 PG (27.0-31.0); MEAN CORPUSCULAR HGB CONC 32.7 g/dL (33.0-36.5); MEAN CORPUSCULAR VOLUME 90.3 FL (78-98); MEAN PLATELET VOLUME 7.2 FL (7.4-10.4); NEUTROPHILS # (AUTO) 12.8 X10'3 (1.8-7.7); NEUTROPHILS % (AUTO) 88.9 % (42-75); PLATELET COUNT 448 X10'3 (140-440); RED BLOOD COUNT 2.52 X10'6 (4.70-6.10); WHITE BLOOD COUNT 14.4 X10'3 (4.5-11.0)
[2024-12-18] MEDS ORDERED: vancomycin inj 2,000 MG in normal saline 500ml IV soln 500 ML IV ONE (22:15)
[2024-12-18] MEDS ORDERED: ertapenem sod inj 1 GM in normal saline 100ml IV soln 100 ML IV SCH (22:30)
[2024-12-18 22:42] LABS: ALANINE AMINOTRANSFERASE 15 U/L (12-78); ALBUMIN 2.8 G/DL (3.4-5.0); ALBUMIN/GLOBULIN RATIO 0.7 (1.1-1.5); ALKALINE PHOSPHATASE 116 IU/L (46-116); ANION GAP 10 (8-16); ASPARTATE AMINO TRANSFERASE 19 U/L (10-37); BILIRUBIN,TOTAL 0.3 MG/DL (0.1-1.0); BLOOD UREA NITROGEN 81 MG/DL (7-18); BUN/CREATININE RATIO 31.4 (10.0-20.0); CALCIUM 8.2 MG/DL (8.5-10.1); CHLORIDE 98 MMOL/L (99-107); CREATININE 2.58 MG/DL (0.60-1.10); GLUCOSE 167 MG/DL (70-104); MAGNESIUM 2.8 MG/DL (1.5-2.4); POTASSIUM 4.4 MMOL/L (3.5-5.1); SODIUM 140 MMOL/L (135-145); TOTAL CARBON DIOXIDE 32.5 MMOL/L (24-32); TOTAL PROTEIN 6.9 G/DL (6.4-8.2); eCRCL 23 ML/MIN; eGFR 25 ML/MIN
--- NOTE | 2024-12-18 22:46 | ELECTROCARDIOGRAPH REPORT ---
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
[2024-12-18 22:51] LABS: BILIRUBIN,URINE NEGATIVE (Neg); CLARITY,URINE SLIGHTLY CLOUDY (Clear); COLOR,URINE YELLOW (Yellow); GLUCOSE, URINE NEGATIVE (Neg); KETONES,URINE NEGATIVE (Neg); LEUKOCYTE ESTERASE ,URINE SMALL (Neg); NITRITES, URINE POSITIVE (Neg); OCCULT BLOOD,URINE TRACE-INTACT (Neg); PROTEIN,URINE 100 mg/dl (Neg); UROBILINOGEN,URINE 0.2 E.U/dL (0.2-1.0)
[2024-12-18 22:53] LABS: UA COLLECTION TYPE NON-SPECIFIED
[2024-12-18 22:53] LABS: ABG BASE EXCESS 4.9 mmol/L (-2.0-3.0); ABG OXYGEN SATURATION 94.6 % (94.0-98.0); ABG PCO2 (T) 51.3 mmHg (35.0-48.0); ABG PH (T) 7.392 (7.350-7.450); ABG PO2 (T) 81.9 mmHg (83.0-108.0); ALLEN'S TEST POSITIVE; FCOHb 0.9 % (0.5-1.5); FHHb 5.3 % (0.0-5.0); FMetHb 0.1 % (0.0-1.5); FO2Hb 93.7 % (94.0-98.0); MODE VENT - AC; PATIENT TEMPERATURE 38.6; PEEP 5 cm H2O; RESPIRATORY RATE 18 b/min; TIDAL VOLUME 450 mL; TOTAL HEMOGLOBIN 7.8 G/dl (13.5-17.5)
--- NOTE | 2024-12-18 22:53 | RADIOLOGY REPORT ---
EXAM: CT CT HEAD INDICATION: ams TECHNIQUE: CT of the head without intravenous contrast. Radiation Dose : 1. Head: CT Dose: CTDI volume is 63.63 mGy. Dose-length product is 1422.81 mGy*cm The dose indicators for CT are the volume Computed Tomography (CT) Dose Index (CTDIvol) and the Dose Length Product (DLP), and are measured in units of mGy and mGy-cm, respectively. These indicators are not patient dose, but values generated from the CT scanner acquisition factors. The report includes radiation exposure data for exposures received during this examination. COMPARISON: None FINDINGS: There is no evidence of acute intracranial hemorrhage, extra-axial collection, mass effect, midline s hift, herniation or hydrocephalus. The ventricles, sulci and cisterns are age appropriate. The beasley-white differentiation is intact. Patchy periventricular and subcortical white matter hypoattenuation is nonspecific but may be related to small vessel ischemic disease. Minimal sphenoid mucosal sinus disease. The remaining visualized paranasal sinuses and mastoid air c ells are clear. The surrounding soft tissues and osseous structures are unremarkable. IMPRESSION: 1. No acute intracranial abnormality. Radiation optimization: All CT scans at this facility use at least one of these dose optimization kg hniques: automated exposure control mA and/or kV adjustment per patient size (includes targeted exam s where dose is matched to clinical indication) or iterative reconstruction.
[2024-12-18 22:57] LABS: MUCUS STRANDS MODERATE /LPF (Neg); SQUAMOUS EPITHELIAL CELL,UR FEW /LPF (FEW)
[2024-12-18 22:58] LABS: BACTERIA,URINE 3+ /HPF (Neg); RBC,URINE 0-2 /HPF (0-2); TRANSITIONAL EPI CELLS,URINE FEW /HPF; WBC CLUMPS,URINE FEW /HPF (NEGATIVE)
[2024-12-18 22:59] LABS: HYALINE CASTS 0-3 /LPF (NEGATIVE)
[2024-12-18] MEDS: normal saline 1000ml 1,000 ML IV ONE ×2 (23:07→23:08)
[2024-12-18] MEDS ORDERED: vancomycin inj 1,000 MG in normal saline 250ml IV soln 250 ML IV SCH (23:30)
--- NOTE | 2024-12-18 23:36 | RADIOLOGY REPORT ---
CHEST RADIOGRAPH Indication: SEPSIS Technique: Single frontal view of the chest was obtained COMPARISON: DI CHEST,SINGLE VIEW on DOS: 12/12/24, DI CHEST,SINGLE VIEW on DOS: 12/10/24, DI CHEST,SINGLE VIEW on DOS: 12/09/24, DI CHEST,SINGLE VIEW on DOS: 12/08/24 FINDINGS: Lines and Tubes: Tracheostomy is stable in position at midline. Lungs: Stable appearing moderate left and small right pleural effusions. Mild interval decrease in d iffuse prominence of the pulmonary vasculature. No evidence of focal consolidation. Persistent right hemidiaphragmatic elevation. No pneumothorax. Cardiomediastinal contours: Unremarkable Bones: Unremarkable IMPRESSION: 1. Stable appearing moderate left and small right pleural effusions. 2. Interval decrease in diffuse prominence of the pulmonary vasculature. 3. Tracheostomy.
[2024-12-18] MEDS ORDERED: ertapenem sod inj 1 GM in normal saline 100ml IV soln 110 ML IV SCH (23:45)
[2024-12-18] MEDS ORDERED: VANCOMYCIN 2GM/400ML H20 (PEG) 400 ML IV ONE (23:55)
[2024-12-19] VITALS (33 sets, daily range): BP systolic 89–150; BP diastolic 41–66; PULSE 76–105; RESP 18–38; O2SAT 92–98
[2024-12-19] MEDS: ertapenem sod inj 1 GM in normal saline 100ml IV soln 110 ML IV SCH (00:17)
[2024-12-19] MEDS ORDERED: LORA2VIA30 IV (01:00)
[2024-12-19] MEDS ORDERED: METO10TA8 GT (01:00)
[2024-12-19] MEDS ORDERED: RISP-31 GT (01:00)
[2024-12-19] MEDS: VANCOMYCIN 2GM/400ML H20 (PEG) 400 ML IV ONE (01:22)
--- NOTE | 2024-12-19 01:37 | Physician Documentation ---
History of Present Illness ~ General Chief Complaint: Stroke Alert Stated Complaint: ALOC Time Seen by MD: 22:06 Source: EMS, [facility] records Mode of Arrival: EMS, Stretcher Exam Limitations: clinical condition History of Present Illness Initial Comments Patient in from [facility] who chronically has a trachea and on a ventilator. Brought in by EMS for lethargy today and not at baseline. Apparently baseline is more alert but can be combative at times and sometimes needs soft restraints. Does have a history of congestive heart failure, diabete s, COPD, AFib. Found to have a fever at the facility. EMS gave Tylenol IV EN route. Recently admitted to this facility on December 08 and discharged home on December 12. Those notes were reviewed by me. Patient was coded prior to admission here at the facility at that time. Medication Reconciliation Allergies: Coded Allergies: Penicillins (Verified Allergy, Severe, STOP BREATHING, 12/18/24) honey (Verified Allergy, Severe, SWELLING, 12/18/24) Scheduled Albuterol Sulfate Nebs* (Proventil Nebs*), 1 VIAL NEB Q4H, (Reported) Apixaban (Eliquis), 1 TAB PO BID, (Reported) Budesonide (Budesonide), 1 VIAL NEB Q12H, (Reported) Ferrous Sulfate (Ferrous Sulfate), 5 ML PO DAILY, (Reported) Formoterol Fumarate (Formoterol Fumarate), 2 ML NEB BID, (Reported) Furosemide (Lasix), 60 MG IV BID, (Reported) Gabapentin (Gabapentin), 1 CAP PO TID, (Reported) Insulin Lispro (Insulin Lispro), 1 UNIT SQ SLIDING SCALE, (Reported) Levothyroxine Sodium (Levothyroxine Sodium), 1 TAB PO DAILY, (Reported) Lorazepam (Ativan), 0.5 MG IV BID, (Reported) Metolazone (Metolazone), 1 TAB GT BID, (Reported) Risperidone (Risperidone), 1 TAB GT HS, (Reported) Scheduled PRN Hydrocodone Bit/Acetaminophen 5/325 MG ([place] 5/325 MG), 1 TAB PO Q6H PRN for pain, (Reported) Discontinued Medications Diazepam (Diazepam), 10 MG IM BID, (Reported) Discontinued Reason: patient no longer taking Famotidine (Famotidine), 1 TAB PO DAILY, (Reported) Discontinued Reason: patient no longer taking Lidocaine (Lidocaine), 1 PATCH TOP DAILY, (Reported) Discontinued Reason: completed med therapy Montelukast Sodium (Montelukast Sodium), 1 TAB PO DAILY, (Reported) Discontinued Reason: patient no longer taking Past Medical History Past Medical History: Atrial Fibrillation, Congestive Heart Failure, COPD, Constipation, Diabetes, Chronic Pain, Anxiety Past Surgical History: noncontributory Alcohol Use: None Drug Use: none Review of Systems ROS Unable given baseline state Physical Exam Physical Exam Vital Signs: Temperature: 100.7, Source: Bladder, Heart Rate: 97, Respiratory Rate: 30, BP: 120/51, Pulse Oximetry: 94, Weight: 120.600 Oxygen Flow Rate: 15.0 Physical Exam General: Lethargic, morbidly obese HEENT: Normocephalic, atraumatic, no visible or palpable masses or depression, extraocular movements intact, PERRLA, no scleral icterus, trachea in place Heart: Regular rate and rhythm, no murmurs, rubs or gallops Lungs: Clear to auscultation bilaterally, normal work of breathing Abdomen: Soft, nontender, no palpable masses, normal bowel sounds Extremities: no acute deformity, peripheral pulses intact, no cyanosis Neurologic: Lethargic, responds to painful stimuli Skin: Good turgor, no rashes Progress Results/Orders Results/Orders Orders - CATALINO QUARLES MD Culture Blood (12/18/24 22:06) Chest,Single View (12/18/24 22:55) Straight Cath For Urine Sample (12/18/24 22:06) Ct Head (12/18/24 22:20) * (A) Mcmahon- Protocol * Q12H@07,19 (12/18/24 22:53) Cult Urine + [place] [facility] (12/18/24 22:59) Vancomycin 2gm/400ml H20 (Peg) (Vancomyc (12/19/24 01:00) Non-Behavioral Restraints (12/19/24 ) Completed Orders - CAATLINO QUARLES MD Electrocardiogram (12/18/24 22:06) Cbc/Diff (12/18/24 22:06) MG (12/18/24 22:06) Chest,Single View (12/18/24 22:55) Procalcitonin (12/18/24 22:06) Lacticsepsis (12/18/24 22:06) CMP (12/18/24 22:08) Ct Head (12/18/24 22:20) Normal Saline 1000ml (Sodium Chloride 10 (12/18/24 22:15) Normal Saline 1000ml (Sodium Chloride 10 (12/18/24 22:50) Ua W/Microscopic, Cult If Ind (12/18/24 22:45) Ertapenem Sod Inj (Invanz Inj) (12/18/24 23:56) Medications Received in ER Medications (Trade) Dose Ordered Sig/Adalberto Route PRN Reason Start Time Stop Time Status Last Admin Dose Admin Sodium Chloride 1,000 ml @ 1,000 mls/hr ONCE ONCE IV 12/18/24 22:15 12/18/24 23:14 DC 12/18/24 23:07 1,000 MLS/HR Sodium Chloride 1,000 ml @ 1,000 mls/hr ONCE ONCE IV 12/18/24 22:50 12/18/24 23:49 DC 12/18/24 23:08 1,000 MLS/HR Ertapenem 1 gm/ Sodium Chloride 110 ml @ 220 mls/hr DAILY@0030 IV 12/18/24 23:56 12/19/24 01:59 DC 12/19/24 00:17 220 MLS/HR Vancomycin HCl 400 ml @ 134 mls/hr ONCE ONCE IV 12/19/24 01:00 12/19/24 03:59 12/19/24 01:22 134 MLS/HR Vital Signs 12/18/24 12/18/24 12/18/24 12/18/24 21:50 21:50 21:59 22:03 Temp 102.4 Pulse 88 86 84 Resp 17 20 18 16 B/P (MAP) 79/43 75/35 (48) Pulse Ox 96 95 96 O2 Flow Rate 0 FiO2 40 12/18/24 12/18/24 12/18/24 12/18/24 22:11 22:41 23:14 23:32 Temp 100.7 Pulse 80 92 89 90 Resp 20 20 21 20 B/P (MAP) 91/50 (64) 96/48 (64) 105/46 (65) 108/57 (74) Pulse Ox 95 96 92 92 O2 Flow Rate 15.0 FiO2 40 40 40 6/12/25 12/19/24 12/19/24 12/19/24 00:00 00:30 00:54 01:00 Temp 100.8 101.4 101.4 Pulse 89 99 97 98 Resp 24 34 30 29 B/P (MAP) 101/47 (65) 95/49 (64) 110/54 (72) Pulse Ox 94 92 94 91 FiO2 40 40 50 40 12/19/24 12/19/24 01:31 01:33 Temp 102.4 102.5 Pulse 99 97 Resp 29 24 B/P (MAP) 130/71 (90) 144/78 (100) Pulse Ox 93 93 FiO2 40 Laboratory Tests Test 12/18/24 22:00 12/18/24 22:45 12/18/24 22:48 White Blood Count 14.4 H Red Blood Count 2.52 L Hemoglobin 7.4 L Hematocrit 22.7 L Mean Corpuscular Volume 90.3 Mean Corpuscular Hemoglobin 29.5 Mean Corpuscular Hemoglobin Concent 32.7 L Red Cell Distribution Width 16.0 H Platelet Count 448 H Mean Platelet Volume 7.2 L Neutrophils (%) (Auto) 88.9 H Lymphocytes (%) (Auto) 3.1 L Monocytes (%) (Auto) 7.0 Eosinophils (%) (Auto) 0.4 Basophils (%) (Auto) 0.6 Neutrophils # (Auto) 12.8 H Lymphocytes # (Auto) 0.5 L Monocytes # (Auto) 1.0 H Eosinophils # (Auto) 0.1 Basophils # (Auto) 0.1 CBC Comment Sodium Level 140 Potassium Level 4.4 Chloride Level 98 L Carbon Dioxide Level 32.5 H Anion Gap 10 Blood Urea Nitrogen 81 H Creatinine 2.58 H Estimated GFR/1.73 m2 25 BUN/Creatinine Ratio 31.4 H Glucose Level 167 H Lactic Acid Level 1.1 Calcium Level 8.2 L Magnesium Level 2.8 H Total Bilirubin 0.3 Aspartate Amino Transf (AST/SGOT) 19 Alanine Aminotransferase (ALT/SGPT) 15 Alkaline Phosphatase 116 Total Protein 6.9 Albumin 2.8 L Globulin 4.1 Albumin/Globulin Ratio 0.7 L Procalcitonin 1.59 H Chemistry Comments Urine Specimen Description Non-specified Urine Color Yellow Urine Clarity Slightly cloudy Urine pH 6.0 Urine Specific [place] 1.015 Urine Protein 100 H Urine Glucose (UA) Negative Urine Ketones Negative Urine Occult Blood Trace-intact Urine Nitrite Positive H Urine Bilirubin Negative Urine Urobilinogen 0.2 Urine Leukocyte Esterase Small H Urine RBC 0-2 Urine WBC 10-20 H Urine WBC Clumps Few Urine Squamous Epithelial Cells Few Urine Transitional Epithelial Cells Few Urine Bacteria 3+ Urine Hyaline Casts 0-3 Urine Mucus Moderate Urine Culture Indicated Indicated Volume Urine Centrifuged 10 ml Urine Comment Blood Gas Specimen Type Arterial Blood Gas Puncture Site Rr O2 Saturation 94.6 Arterial Blood pH (Temp corrected) 7.392 Arterial Blood pCO2 (Temp correct) 51.3 H Arterial Blood pO2 (Temp corrected) 81.9 L Arterial Blood PO2/FiO2 Ratio 1.84 Arterial Blood HCO3 30.0 H Arterial Blood Base Excess 4.9 H Arterial Blood Oxyhemoglobin 93.7 L Arterial Blood Carboxyhemoglobin 0.9 Arterial Blood Methemoglobin 0.1 Arterial Blood Deoxyhemoglobin 5.3 H Soren Test Positive Blood Gas Hemoglobin 7.8 L Blood Gas Temperature 38.6 Blood Gas Set Respiration Rate 18 Blood Gas Modality Vent - ac FiO2 40.0 Blood Gas Tidal Volume 450 Blood Gas PEEP 5 Microbiology Date/Time Source Procedure Growth Status 12/18/24 22:59 Urine Nonspecified Urine Culture - Preliminary Culture received. Resulted 12/18/24 22:18 Blood Arm Left Blood Culture - Preliminary NEGATIVE (LESS THAN 24 HOURS) Resulted Medical Decision Making Differential Diagnosis Differential includes but is not limited to: Pneumonia, myocardial infarction, sepsis, UTI, dehydration, electrolyte derangement, stroke, viral infection Departure Admitted to Inpatient Unit: yes, to lap runner Admission Level of Care: Critcal Care Impression: Primary Impression: Sepsis Qualified Codes: A41.9 - Sepsis, unspecified organism Additional Impression: Urinary tract infection Qualified Codes: N30.00 - Acute cystitis without hematuria Additional Impression Text EKG: Sinus rhythm, rate of 86, no ST changes, QTC 463 Patient with sepsis secondary to UTI. Patient had been given Tylenol EN route and fluids were started. He has had a total of 2 L of fluids and his pressure has improved. History of CHF so hydrated cautiously. Patient initially was started on ertapenem and vancomycin. Chest x-ray and head CT with no acute changes. Images were independently reviewed by me and confirmed by Radiology. Discussed the case with Dr. Sharif the lap runner who has accepted the patient for further treatment. Patient will go to the ICU given the trach and ventilation needs. Critical care time spent 30 minutes with chart review, patient care and consultation. Patient is stable on admission. Condition: Improved Referrals: NO PRIMARY CARE PROVIDER (PCP) Signature Scribe Signature: No scribe Attestation: No scribe CATALINO QUARLES MD Dec 19, 2024 01:37
--- NOTE | 2024-12-19 01:50 | HISTORY AND PHYSICAL ---
History & Physical - Short Providers to CC Patient evaluated in the ED with the help of two-way communicating A/V technology. Earlier I had signout from the ED physician. Patient with chronic trach on vent. Facility had her come in because of altered status. Concern has been for sepsis. Patient was hypotensive initially requiring fluid boluses currently blood pressure is maintained. However ED physician feels her mental status has been poor with worsening encephalopathy compared to his baseline status. Currently going to be admitted to the ICU for continued antibiotic vent support and nutritional supports. Available laboratory data reviewed. Lab and radiological investigations reviewed.~ History of Present Illness Chief Complain & History Worsening neurostatus and possible sepsis. Transfer from care facility. Allergies: Coded Allergies: Penicillins (Verified Allergy, Severe, STOP BREATHING, 12/18/24) honey (Verified Allergy, Severe, SWELLING, 12/18/24) Home Medications Home Medications Active Reported Metolazone 10 Mg Tablet 1 Tab GT BID 30 Days Risperidone 1 Mg Tablet 1 Tab GT HS 30 Days Ativan (Lorazepam) 2 Mg/Ml Vial 0.5 Mg IV BID 1 Days [place] 5/325 MG (Acetaminophen/Hydrocodone Bitart) 5 Mg/325 Mg Tablet 1 Tab PO Q6H PRN Proventil Nebs* (Albuterol) 2.5 Mg/0.5 Ml Vial.neb 1 Vial NEB Q4H 10 Days Budesonide 0.25 Mg/2 Ml Ampul.neb 1 Vial NEB Q12H 30 Days Eliquis (Apixaban) 5 Mg Tablet 1 Tab PO BID 30 Days Levothyroxine Sodium 150 Mcg Tablet 1 Tab PO DAILY 30 Days Insulin Lispro 100 Unit/Ml Vial 1 Unit SQ SLIDING SCALE Gabapentin 100 Mg Capsule 1 Cap PO TID 30 Days Lasix (Furosemide) 40 Mg Tablet 60 Mg IV BID 30 Days Formoterol Fumarate 20 Mcg/2 Ml Vial.neb 2 Ml NEB BID Ferrous Sulfate 300 Mg (60 Mg Iron)/5 Ml Liquid 5 Ml PO DAILY 30 Days Exam Last recorded Lab results: 12/[id number] Vitals: Vital Signs Date Time Temp Pulse Resp B/P (MAP) Pulse Ox O2 Delivery O2 Flow Rate FiO2 12/19/24 00:54 97 30 94 50 12/18/24 23:32 108/57 (74) 12/18/24 23:14 100.7 12/18/24 22:11 15.0 Counseling Services Smoking & Tobacco Cessation: N/A Advance Care Planning Advanced Care planning: N/A Problem\Assessment\Plan Additional Plan 1. Sepsis with septic shock 2. Renal failure acute on chronic 3. Leukocytosis 4. Urinary tract infection 5. Chronic tracheostomy status 6. Chronic ventilator dependent respiratory failure 7. Anemia of chronic disease. Plan Continue vent support. Will trace the outpatient vent settings and continue the same. Patient has high BMI noted. Antibiotics Anemia workup Follow renal functions closely. Continue careful IV fluids. Vent bundle PPI Hold diuretics DVT prophylaxis BRIAN FAM MD Dec 19, 2024 01:50
[2024-12-19] MEDS: midazolam 1 mg/ML 2ml injection IV ONE (02:05)
[2024-12-19] MEDS: ipratropium/albuterol 3ml nebule NEB SCH (03:00)
[2024-12-19] MEDS: acetaminophen 1,000mg/100ml IV 100 ML IV SCH (03:04)
[2024-12-19] MEDS: LORazepam 2 mg/ml vial IV ONE (03:04)
[2024-12-19 03:21] LABS: OCCULT BLOOD STOOL NEGATIVE (Neg)
[2024-12-19 04:19] LABS: ABG BASE EXCESS 1.9 mmol/L (-2.0-3.0); ABG HCO3 26.7 mmol/L (21.0-28.0); ABG OXYGEN SATURATION 95.3 % (94.0-98.0); ABG PCO2 (T) 46.7 mmHg (35.0-48.0); ABG PH (T) 7.383 (7.350-7.450); ALLEN'S TEST POSITIVE; FCOHb 0.7 % (0.5-1.5); FHHb 4.7 % (0.0-5.0); FMetHb 0.1 % (0.0-1.5); FO2Hb 94.5 % (94.0-98.0); MODE VENT - AC; PEEP 5 cm H2O; RESPIRATORY RATE 18 b/min; TIDAL VOLUME 450 mL; TOTAL HEMOGLOBIN 7.1 G/dl (13.5-17.5)
[2024-12-19] MEDS: normal saline 500ml IV soln 500 ML IV ONE (04:58)
--- NOTE | 2024-12-19 07:56 | PROGRESS NOTE ---
Progress Note Dictate Providers to CC ~ Progress Note: No new acute issues overnight. BP ok off pressors Central Line/PICC still needed: N\A Mcmahon Indications Met/Not Met: F/C Indications Met Antibiotic Ordered?: Yes Subjective Subjective Comfortable Objective Vitals Vital Signs Date Time Temp Pulse Resp B/P (MAP) Pulse Ox O2 Delivery O2 Flow Rate FiO2 12/19/24 07:28 101 30 Mechanical Ventilator 50 12/19/24 07:25 97 12/19/24 06:36 102.2 123/66 (85) 12/18/24 22:11 15.0 Lab Results: 12/18/[id number]/[id number] Objective Heart: A Fib Lungs: Coarse BS at bases Abdomen: soft, non-tender, BS (+) Ext: No edema Neuro: Obtunded Problem\Assessment\Plan Additional Plan 1-VDRF -F/U ABG 2-Severe Sepsis due to UTI -F/U cultures -Broad spectrum abx 3-Acute on Chronic Renal Failure -F/U BMP -IVF resuscitation -Hold diuretics 4-Chronic A Fib -Continue current tx John Earl CC time 35min Sepsis Screening Reassessment Date: Dec 19, 2024 GWEN EARL MD Dec 19, 2024 07:56
[2024-12-19] MEDS: ringers solution, lacted 1,000 ML IV ONE ×3 (08:20→15:52)
[2024-12-19] MEDS: apixaban 2.5mg tablet PO SCH (08:23)
[2024-12-19] MEDS: famotidine 20mg tablet PO SCH (08:23)
[2024-12-19] MEDS: VASOPRESSIN 20 UNITS/NS 100mL 100 ML IV ONE (08:46)
[2024-12-19] MEDS ORDERED: famotidine 20mg tablet PEG SCH (09:18)
[2024-12-19] MEDS: NORMAL SALINE IV ONE ×2 (09:56→18:40)
[2024-12-19] MEDS: TOBRAMYCIN IV ONE ×2 (09:56→18:40)
[2024-12-19] MEDS ORDERED: FAMO-49 PO (11:20)
[2024-12-19] MEDS ORDERED: ATR0.5NEB IH (11:23)
[2024-12-19] MEDS ORDERED: MONT-48 PO (11:29)
[2024-12-19] MEDS ORDERED: Dextrose 10%-water IV solution 1,000 ML IV SCH (14:20)
[2024-12-19] MEDS ORDERED: glucagon, human recombinant 1mg kit SUBCUT PRN (14:20)
[2024-12-19] MEDS ORDERED: dextrose 50%-water 50ml dispensing syringe IV PRN ×2 (14:20)
[2024-12-19] MEDS ORDERED: DEXTROSE 15 GM of carb/4 tabs (each vial/BOTTLE has 4 tablets) PO PRN ×2 (14:20)
[2024-12-19] MEDS: dexmedetomidin/NS 400mcg/100ml 100 ML IV SCH (17:30)
[2024-12-19] MEDS: insulin regular, human U-100 10ml vial - multi-dose SQ SCH ×2 (20:00)
[2024-12-19] MEDS: apixaban 2.5mg tablet PEG SCH (20:02)
[2024-12-20] VITALS (48 sets, daily range): BP systolic 0–143; BP diastolic 35–63; PULSE 74–96; RESP 18–31; O2SAT 89–100
[2024-12-20] MEDS ORDERED: ertapenem sod inj 1 GM in normal saline 100ml IV soln 100 ML IV SCH (00:30)
[2024-12-20] MEDS: CefTRIAXone 2gm/D5W 50ml BAG 50 ML IV SCH (00:52)
[2024-12-20] MEDS: mineral oil/petrolatum ophthal oint EACHEYE SCH (02:29)
[2024-12-20] MEDS: Insulin regular, human (NovoLIN R) inj ONE (03:25)
[2024-12-20 06:03] LABS: BASOPHILS % (AUTO) 0.3 % (0-1); EOSINOPHILS % (AUTO) 0 % (0-6); LYMPHOCYTES # (AUTO) 0.7 X10'3 (1.1-4.8); LYMPHOCYTES % (AUTO) 6.6 % (21-51); MEAN CORPUSCULAR HEMOGLOBIN 29.9 PG (27.0-31.0); MEAN CORPUSCULAR HGB CONC 32.8 g/dL (33.0-36.5); MEAN CORPUSCULAR VOLUME 91.3 FL (78-98); MONOCYTES # (AUTO) 0.4 X10'3 (0-0.9); MONOCYTES % (AUTO) 3.7 % (2-12); NEUTROPHILS # (AUTO) 9.5 X10'3 (1.8-7.7); NEUTROPHILS % (AUTO) 89.4 % (42-75); PLATELET COUNT 357 X10'3 (140-440); RED BLOOD COUNT 2.15 X10'6 (4.70-6.10); RED CELL DISTRIBUTION WIDTH 16.9 % (11.5-14.5); WHITE BLOOD COUNT 10.6 X10'3 (4.5-11.0)
[2024-12-20 06:08] LABS: HEMOGLOBIN 6.4 g/dl (14.0-17.9)
[2024-12-20 06:09] LABS: HEMATOCRIT 19.7 % (42.0-52.0)
[2024-12-20 06:33] LABS: ALANINE AMINOTRANSFERASE 32 U/L (12-78); ALBUMIN 1.9 G/DL (3.4-5.0); ALBUMIN/GLOBULIN RATIO 0.4 (1.1-1.5); ALKALINE PHOSPHATASE 136 IU/L (46-116); ANION GAP 16 (8-16); ASPARTATE AMINO TRANSFERASE 45 U/L (10-37); BILIRUBIN,TOTAL 0.2 MG/DL (0.1-1.0); BLOOD UREA NITROGEN 87 MG/DL (7-18); BUN/CREATININE RATIO 27.1 (10.0-20.0); CALCIUM 7.3 MG/DL (8.5-10.1); CHLORIDE 100 MMOL/L (99-107); CREATININE 3.21 MG/DL (0.60-1.10); GLUCOSE 201 MG/DL (70-104); MAGNESIUM 2.5 MG/DL (1.5-2.4); PHOSPHORUS 3.8 MG/DL (2.3-4.5); POTASSIUM 4.1 MMOL/L (3.5-5.1); SODIUM 142 MMOL/L (135-145); TOTAL CARBON DIOXIDE 25.9 MMOL/L (24-32); TOTAL PROTEIN 6.5 G/DL (6.4-8.2); eCRCL 18 ML/MIN; eGFR 20 ML/MIN
--- NOTE | 2024-12-20 06:35 | PROGRESS NOTE ---
Progress Note Dictate Providers to CC ~ Progress Note: No new acute issues overnight Central Line/PICC still needed: Yes Mcmahon Indications Met/Not Met: F/C Indications Met Antibiotic Ordered?: Yes Subjective Subjective Comfortable Objective Vitals Vital Signs Date Time Temp Pulse Resp B/P (MAP) Pulse Ox O2 Delivery O2 Flow Rate FiO2 12/20/24 06:00 98.8 76 28 119/60 (79) 96 Mechanical Ventilator 45 12/19/24 20:00 15.0 Lab Results: 12/20/24 0518 12/18/24 2200 Objective Heart: A Fib Lungs: Coarse BS at bases Abdomen: soft, non-tender, BS (+) Ext: No edema Neuro: Obtunded Problem\Assessment\Plan Additional Plan 1-VDRF -F/U ABG, CXR 2-Severe Sepsis due to Gram (-) Rods UTI -Continue abx 3-Bacteremia -F/U cultures 4-Chronic A Fib -Continue current bran Earl CC time 35min Sepsis Screening Reassessment Date: Dec 20, 2024 GWEN EARL MD Dec 20, 2024 06:35
--- NOTE | 2024-12-20 06:49 | RADIOLOGY REPORT ---
CHEST RADIOGRAPH Indication: trach/pneu Technique: Single frontal view of the chest was obtained Comparison: DI CHEST,SINGLE VIEW on DOS: 12/18/24, DI CHEST,SINGLE VIEW on DOS: 12/12/24, DI CHEST,SINGL E VIEW on DOS: 12/10/24, DI CHEST,SINGLE VIEW on DOS: 12/09/24, DI CHEST,SINGLE VIEW on DOS: 12/08/24, DI C HEST,SINGLE VIEW on DOS: 12/18/24 FINDINGS: Lines and Tubes: Tracheostomy is stable in position at midline. Lungs: Stable appearing moderate left and small right pleural effusions. Mild interval decrease in d iffuse prominence of the pulmonary vasculature. No evidence of focal consolidation. Persistent right hemidiaphragmatic elevation. No pneumothorax. Cardiomediastinal contours: Unremarkable Bones: Unremarkable IMPRESSION: 1. Stable appearing moderate left and small right pleural effusions. 2. Interval decrease in diffuse prominence of the pulmonary vasculature. 3. Tracheostomy.
[2024-12-20] MEDS: ringers solution, lacted 1,000 ML IV SCH (07:28)
[2024-12-20] MEDS ORDERED: lansoprazole 15mg solutab PEG SCH (08:00)
[2024-12-20] MEDS: acetaminophen 1,000mg/100ml IV 100 ML IV PRN (12:10)
[2024-12-20] MEDS: albuterol 2.5 MG/3 ML nebule ONE (12:21)
[2024-12-20] MEDS: albuterol 2.5 MG/3 ML nebule NEB ONE (12:22)
[2024-12-20] MEDS: ondansetron/PF 4mg/2ml inj IV PRN (18:53)
[2024-12-20] MEDS: pantoprazole 40MG/NS 100ML BAG 100 ML IV SCH (19:37)
[2024-12-21] VITALS (43 sets, daily range): BP systolic 83–121; BP diastolic 40–65; PULSE 74–98; RESP 17–31; O2SAT 84–100
[2024-12-21] MEDS: HYDROmorphone/PF 0.2 MG/ML SYRINGE IV ONE (01:00)
[2024-12-21 05:33] LABS: BASOPHILS % (AUTO) 0.4 % (0-1); EOSINOPHILS % (AUTO) 0.4 % (0-6); LYMPHOCYTES # (AUTO) 0.6 X10'3 (1.1-4.8); LYMPHOCYTES % (AUTO) 9.1 % (21-51); MEAN CORPUSCULAR HEMOGLOBIN 29.3 PG (27.0-31.0); MEAN CORPUSCULAR HGB CONC 32.4 g/dL (33.0-36.5); MEAN CORPUSCULAR VOLUME 90.2 FL (78-98); MEAN PLATELET VOLUME 8.1 FL (7.4-10.4); MONOCYTES # (AUTO) 0.4 X10'3 (0-0.9); MONOCYTES % (AUTO) 6.1 % (2-12); NEUTROPHILS # (AUTO) 5.5 X10'3 (1.8-7.7); PLATELET COUNT 318 X10'3 (140-440); RED BLOOD COUNT 2.08 X10'6 (4.70-6.10); RED CELL DISTRIBUTION WIDTH 16.8 % (11.5-14.5); WHITE BLOOD COUNT 6.6 X10'3 (4.5-11.0)
[2024-12-21 05:49] LABS: ALANINE AMINOTRANSFERASE 40 U/L (12-78); ALBUMIN 1.7 G/DL (3.4-5.0); ALBUMIN/GLOBULIN RATIO 0.4 (1.1-1.5); ALKALINE PHOSPHATASE 246 IU/L (46-116); ANION GAP 15 (8-16); ASPARTATE AMINO TRANSFERASE 44 U/L (10-37); BILIRUBIN,TOTAL 0.2 MG/DL (0.1-1.0); BLOOD UREA NITROGEN 95 MG/DL (7-18); BUN/CREATININE RATIO 30.5 (10.0-20.0); CALCIUM 7.2 MG/DL (8.5-10.1); CHLORIDE 102 MMOL/L (99-107); CREATININE 3.11 MG/DL (0.60-1.10); GLUCOSE 146 MG/DL (70-104); MAGNESIUM 2.4 MG/DL (1.5-2.4); PHOSPHORUS 3.8 MG/DL (2.3-4.5); POTASSIUM 4.1 MMOL/L (3.5-5.1); SODIUM 142 MMOL/L (135-145); TOTAL CARBON DIOXIDE 24.9 MMOL/L (24-32); TOTAL PROTEIN 6.5 G/DL (6.4-8.2); eCRCL 19 ML/MIN; eGFR 20 ML/MIN
[2024-12-21 06:10] LABS: HEMATOCRIT 18.8 % (42.0-52.0); HEMOGLOBIN 6.1 g/dl (14.0-17.9)
--- NOTE | 2024-12-21 06:28 | PROGRESS NOTE ---
Progress Note Dictate Providers to CC ~ Progress Note: Agitated last night. On Precedex Central Line/PICC still needed: Yes Mcmahon Indications Met/Not Met: F/C Indications Met Antibiotic Ordered?: Yes Subjective Subjective Comfortable Objective Vitals Vital Signs Date Time Temp Pulse Resp B/P (MAP) Pulse Ox O2 Delivery O2 Flow Rate FiO2 12/21/24 06:00 101.5 12/21/24 06:00 79 19 103/51 (68) 94 Mechanical Ventilator 45 12/20/24 20:00 15.0 Lab Results: 12/21/24 0439 12/21/24 0439 Objective Heart: A Fib Lungs: Coarse BS at bases Abdomen: soft, non-tender, BS (+) Ext: No edema Neuro: Obtunded Problem\Assessment\Plan Additional Plan 1-VDRF -F/U CXR 2-Severe Sepsis due to UTI (Proteus) -F/U cultures 3-Gram(-) Bacteremia -F/U cultures 4-Encephalopathy Metabolic due to Sepsis -Add Seroquel -Precedex as needed 5-Anemia -No evidence of blood loss, dilutional -Transfuse PRBC 6-Chronic A Fib -Continue current Tx John Earl CC time 35min Sepsis Screening Reassessment Date: Dec 21, 2024 GWEN EARL MD Dec 21, 2024 06:28
[2024-12-21] MEDS: quetiapine 100mg tablet PO SCH (08:09)
[2024-12-21] MEDS: famotidine 20mg tablet PEG SCH (08:09)
[2024-12-21] MEDS: MEROPENEM 500MG/50ML-NS IVPB 50 ML IV SCH (09:41)
[2024-12-21] MEDS: morphine 2 MG/ML inj. syringe IV PRN (09:42)
[2024-12-21] MEDS: OLANZapine **IM** 10 mg inj. IM ONE (15:54)
[2024-12-21] MEDS: LORazepam 2 mg/ml vial IM ONE (15:54)
[2024-12-22] VITALS (55 sets, daily range): BP systolic 87–137; BP diastolic 40–72; PULSE 67–96; RESP 13–29; TEMP 99–100; O2SAT 90–99
--- NOTE | 2024-12-22 06:21 | PROGRESS NOTE ---
Progress Note Dictate Providers to CC ~ Progress Note: Pt confuse, uncooperative. Refusing treatment Central Line/PICC still needed: No Mcmahon Indications Met/Not Met: F/C Indications Met Antibiotic Ordered?: Yes Subjective Subjective Comfortable Objective Vitals Vital Signs Date Time Temp Pulse Resp B/P (MAP) Pulse Ox O2 Delivery O2 Flow Rate FiO2 12/22/24 06:01 100.8 70 18 87/40 (56) 96 Mechanical Ventilator 45 12/20/24 20:00 15.0 Lab Results: 12/21/24 0439 12/21/24 0439 Objective Heart: A Fib Lungs: Coarse BS at bases Abdomen: soft, non-tender, BS (+) Ext: No edema Neuro: confuse Problem\Assessment\Plan Additional Plan 1-VDRF -F/U CXR 2-Sepsis due to UTI -Continue abx 3-Delirium -Increase Seroquel -Precedex as needed 4-Anemia -PRBC ordered 5-Chronic A Fib -Continue Amiodarone Unable to contact decision-maker to address code status John Earl CC time 35min Sepsis Screening Reassessment Date: Dec 22, 2024 GWEN EARL MD Dec 22, 2024 06:21
[2024-12-22] MEDS: quetiapine 100mg tablet PO SCH (09:24)
[2024-12-22] MEDS: midazolam 1 mg/ML 2ml injection ONE (10:29)
[2024-12-22] MEDS: MIDAZolam 5mg/ml 2ml vial IV ONE (10:29)
[2024-12-22] MEDS: rocuronium 10mg/ml inj IV ONE (10:30)
[2024-12-22] MEDS ORDERED: levoFLOXACIN 750MG TABLET PEG SCH (11:00)
[2024-12-22 11:04] LABS: BASOPHILS % (AUTO) 0.3 % (0-1); EOSINOPHILS # (AUTO) 0.1 X10'3 (0-0.9); EOSINOPHILS % (AUTO) 1.1 % (0-6); LYMPHOCYTES # (AUTO) 0.5 X10'3 (1.1-4.8); LYMPHOCYTES % (AUTO) 9.4 % (21-51); MEAN CORPUSCULAR HEMOGLOBIN 29.9 PG (27.0-31.0); MEAN CORPUSCULAR HGB CONC 33.3 g/dL (33.0-36.5); MEAN CORPUSCULAR VOLUME 89.7 FL (78-98); MEAN PLATELET VOLUME 8.3 FL (7.4-10.4); MONOCYTES # (AUTO) 0.5 X10'3 (0-0.9); MONOCYTES % (AUTO) 8.9 % (2-12); NEUTROPHILS # (AUTO) 4.5 X10'3 (1.8-7.7); NEUTROPHILS % (AUTO) 80.3 % (42-75); PLATELET COUNT 292 X10'3 (140-440); RED BLOOD COUNT 1.75 X10'6 (4.70-6.10); WHITE BLOOD COUNT 5.6 X10'3 (4.5-11.0)
--- NOTE | 2024-12-22 11:04 | RADIOLOGY REPORT ---
CHEST XRAY: 1 view(s) was obtained HISTORY: LINE PLACEMENT COMPARISON: DI CHEST,SINGLE VIEW on DOS: 12/20/24, DI CHEST,SINGLE VIEW on DOS: 12/18/24, DI CHEST,SING LE VIEW on DOS: 12/12/24, DI CHEST,SINGLE VIEW on DOS: 12/10/24, DI CHEST,SINGLE VIEW on DOS: 12/09/24 FINDINGS: The patient is rotated. Tracheostomy tube is present. There is pulmonary vascular congestion with sep thelma thickening. Partially imaged left lower lobes left retrocardiac opacity with observation of the l eft hemidiaphragm. There is blunting of the left costophrenic sulcus. Cardiomediastinal solid normal size. Interval placement of a right subclavian line with tip projecting over the superior segment. IMPRESSION: 1. Interval placement of a right subclavian line with tip projecting over the superior mediastinum in unclear location given patient rotation and horizontal positioning of the catheter tip. Recommend ad ditional views for better assessment. 2. Worsening opacification of the lungs when compared to 2 days prior, likely pulmonary edema 3. Left lower lobe atelectasis with small left pleural effusion
[2024-12-22 11:09] LABS: HEMOGLOBIN 5.2 g/dl (14.0-17.9)
[2024-12-22 11:10] LABS: HEMATOCRIT 15.7 % (42.0-52.0)
[2024-12-22 11:18] LABS: ALANINE AMINOTRANSFERASE 38 U/L (12-78); ALBUMIN 1.7 G/DL (3.4-5.0); ALBUMIN/GLOBULIN RATIO 0.4 (1.1-1.5); ALKALINE PHOSPHATASE 372 IU/L (46-116); ANION GAP 11 (8-16); ASPARTATE AMINO TRANSFERASE 38 U/L (10-37); BILIRUBIN,TOTAL 0.2 MG/DL (0.1-1.0); BLOOD UREA NITROGEN 117 MG/DL (7-18); BUN/CREATININE RATIO 29.8 (10.0-20.0); CALCIUM 6.7 MG/DL (8.5-10.1); CHLORIDE 103 MMOL/L (99-107); CREATININE 3.93 MG/DL (0.60-1.10); GLUCOSE 119 MG/DL (70-104); MAGNESIUM 2.4 MG/DL (1.5-2.4); PHOSPHORUS 4.6 MG/DL (2.3-4.5); POTASSIUM 3.9 MMOL/L (3.5-5.1); SODIUM 141 MMOL/L (135-145); TOTAL CARBON DIOXIDE 26.8 MMOL/L (24-32); TOTAL PROTEIN 6.1 G/DL (6.4-8.2); eCRCL 15 ML/MIN; eGFR 16 ML/MIN
--- NOTE | 2024-12-22 11:20 | PROCEDURE NOTE CC ---
Procedure Note CC Providers to CC ~ Procedure Name: Central Venous Multi-Lumen Catheter Insertion Description: Indication: Sepsis Time-out: Done Consent: Family Site R Subclavian Technique: Seldinger Anesthesia: Local Complication: None EBL: 1ml Sepsis Screening Reassessment Date: Dec 22, 2024 GWEN BUITRAGO MD Dec 22, 2024 11:19
[2024-12-22] MEDS: COMMUNICATION ORDER 1 EA MISC MC ONE ×2 (14:45→17:01)
[2024-12-22] MEDS ORDERED: fentaNYL/PF 50MCG/1 ML 2ML syringe IV PRN (14:55)
[2024-12-22] MEDS: FENTANYL-0.9 % NACL/PF 100 ML IV SCH (15:44)
[2024-12-22 17:29] LABS: BASOPHILS % (AUTO) 0.3 % (0-1); EOSINOPHILS # (AUTO) 0.1 X10'3 (0-0.9); EOSINOPHILS % (AUTO) 1.1 % (0-6); LYMPHOCYTES # (AUTO) 0.6 X10'3 (1.1-4.8); LYMPHOCYTES % (AUTO) 9.1 % (21-51); MEAN CORPUSCULAR HEMOGLOBIN 29.4 PG (27.0-31.0); MEAN CORPUSCULAR HGB CONC 32.7 g/dL (33.0-36.5); MEAN CORPUSCULAR VOLUME 89.9 FL (78-98); MEAN PLATELET VOLUME 8.4 FL (7.4-10.4); MONOCYTES # (AUTO) 0.5 X10'3 (0-0.9); MONOCYTES % (AUTO) 8.4 % (2-12); NEUTROPHILS # (AUTO) 5.1 X10'3 (1.8-7.7); NEUTROPHILS % (AUTO) 81.1 % (42-75); PLATELET COUNT 287 X10'3 (140-440); RED BLOOD COUNT 2.34 X10'6 (4.70-6.10); RED CELL DISTRIBUTION WIDTH 17.1 % (11.5-14.5); WHITE BLOOD COUNT 6.3 X10'3 (4.5-11.0)
[2024-12-22 17:30] LABS: ALBUMIN 1.8 G/DL (3.4-5.0); ANION GAP 15 (8-16); BLOOD UREA NITROGEN 107 MG/DL (7-18); BUN/CREATININE RATIO 28.9 (10.0-20.0); CALCIUM 6.7 MG/DL (8.5-10.1); CHLORIDE 104 MMOL/L (99-107); GLUCOSE 133 MG/DL (70-104); MAGNESIUM 2.3 MG/DL (1.5-2.4); POTASSIUM 4.3 MMOL/L (3.5-5.1); SODIUM 145 MMOL/L (135-145); TOTAL CARBON DIOXIDE 26.1 MMOL/L (24-32); eCRCL 16 ML/MIN; eGFR 17 ML/MIN
[2024-12-22 17:36] LABS: HEMOGLOBIN 6.9 g/dl (14.0-17.9)
[2024-12-22] MEDS: pantoprazole 40 MG vial IV SCH (20:04)
[2024-12-23] VITALS (45 sets, daily range): BP systolic 103–137; BP diastolic 47–60; PULSE 64–95; RESP 17–31; O2SAT 90–96
[2024-12-23 02:12] LABS: BASOPHILS % (AUTO) 0.2 % (0-1); EOSINOPHILS # (AUTO) 0.1 X10'3 (0-0.9); EOSINOPHILS % (AUTO) 1.8 % (0-6); HEMATOCRIT 22.6 % (42.0-52.0); HEMOGLOBIN 7.6 g/dl (14.0-17.9); LYMPHOCYTES # (AUTO) 0.5 X10'3 (1.1-4.8); LYMPHOCYTES % (AUTO) 7.8 % (21-51); MEAN CORPUSCULAR HEMOGLOBIN 29.8 PG (27.0-31.0); MEAN CORPUSCULAR HGB CONC 33.5 g/dL (33.0-36.5); MEAN CORPUSCULAR VOLUME 88.9 FL (78-98); MEAN PLATELET VOLUME 8.2 FL (7.4-10.4); MONOCYTES # (AUTO) 0.5 X10'3 (0-0.9); MONOCYTES % (AUTO) 7.9 % (2-12); NEUTROPHILS # (AUTO) 5.4 X10'3 (1.8-7.7); NEUTROPHILS % (AUTO) 82.3 % (42-75); PLATELET COUNT 303 X10'3 (140-440); RED BLOOD COUNT 2.54 X10'6 (4.70-6.10); RED CELL DISTRIBUTION WIDTH 17.3 % (11.5-14.5); WHITE BLOOD COUNT 6.6 X10'3 (4.5-11.0)
[2024-12-23 02:27] LABS: ALANINE AMINOTRANSFERASE 33 U/L (12-78); ALBUMIN 1.7 G/DL (3.4-5.0); ALBUMIN/GLOBULIN RATIO 0.4 (1.1-1.5); ALKALINE PHOSPHATASE 367 IU/L (46-116); ANION GAP 11 (8-16); ASPARTATE AMINO TRANSFERASE 28 U/L (10-37); BILIRUBIN,TOTAL 0.4 MG/DL (0.1-1.0); BLOOD UREA NITROGEN 105 MG/DL (7-18); BUN/CREATININE RATIO 30.4 (10.0-20.0); CALCIUM 6.8 MG/DL (8.5-10.1); CHLORIDE 105 MMOL/L (99-107); CREATININE 3.45 MG/DL (0.60-1.10); GLUCOSE 158 MG/DL (70-104); MAGNESIUM 2.2 MG/DL (1.5-2.4); PHOSPHORUS 3.7 MG/DL (2.3-4.5); POTASSIUM 3.5 MMOL/L (3.5-5.1); PREALBUMIN 13.6 MG/DL (19-36); SODIUM 141 MMOL/L (135-145); TOTAL CARBON DIOXIDE 24.8 MMOL/L (24-32); TOTAL PROTEIN 6.3 G/DL (6.4-8.2); eCRCL 17 ML/MIN; eGFR 18 ML/MIN
--- NOTE | 2024-12-23 05:50 | RADIOLOGY REPORT ---
CHEST RADIOGRAPH Indication: Trach and vent Technique: Single frontal view of the chest was obtained Comparison: DI CHEST,SINGLE VIEW on DOS: 12/22/24 FINDINGS: Lines and Tubes: Right central venous catheter terminates in the superior vena cava. There is a trac heostomy tube is unchanged. Lungs: Confluent bilateral airspace consolidation is similar to prior study. Pleura: Bilateral pleural effusions are similar to prior study. No pneumothorax. Cardiomediastinal contours: Stable Cardiovascular silhouette. Bones: No acute osseous abnormality. IMPRESSION: 1. No significant change in confluence bilateral airspace disease which may represent edema or pneumo patricia. 2. Bilateral pleural effusions also similar.
--- NOTE | 2024-12-23 06:29 | PROGRESS NOTE ---
Progress Note Dictate Providers to CC ~ Progress Note: No new acute issues overnight. S/P PRBC yesterday Central Line/PICC still needed: Yes Mcmahon Indications Met/Not Met: F/C Indications Met Antibiotic Ordered?: Yes Subjective Subjective Agitated Objective Vitals Vital Signs Date Time Temp Pulse Resp B/P (MAP) Pulse Ox O2 Delivery O2 Flow Rate FiO2 12/23/24 05:59 18 12/23/24 05:59 121/50 12/23/24 05:58 101.3 73 95 Mechanical Ventilator 45 12/20/24 20:00 15.0 Lab Results: 12/23/24 0155 12/23/24 0155 Objective Heart: A Fib Lungs: Coarse BS at bases Abdomen: soft, non-tender, BS (+) Ext: No edema Neuro: confuse Problem\Assessment\Plan Additional Plan 1-VDRF -Ventilator support 2-Severe Sepsis due to MDR Proteus & Acinetobacter UTI + Bacteremia -Continue abx -Contact Isolation 3-Chronic A Fib -Continue current tx 4-Delirium -Seroquel D/W family. Leaning towards comfort care only John Earl CC time 35min Sepsis Screening Reassessment Date: Dec 23, 2024 GWEN EARL MD Dec 23, 2024 06:29
[2024-12-23] MEDS: normal saline 1000ml 1,000 ML IV SCH (07:24)
[2024-12-23] MEDS: quetiapine 100mg tablet PEG ONE (11:11)
[2024-12-23] MEDS: quetiapine 100mg tablet PEG SCH (19:53)
[2024-12-24] VITALS (25 sets, daily range): BP systolic 106–126; BP diastolic 46–73; PULSE 67–79; RESP 16–25; TEMP 99.4–99.5; O2SAT 92–99
--- NOTE | 2024-12-24 01:33 | PROGRESS NOTE ---
Progress Note Dictate Providers to CC Remains critically ill on ventilator via tracheostomy~ Progress Note: Chronically vented patient transferred from [facility] due to worsening status. He has had significant respiratory/airway secretions as well as possible UTI. Now cultures are growing Proteus in the urine and Proteus in the Acinetobacter in the sputum. Currently on antibiotics meropenem Antibiotic Ordered?: N/A Objective Vitals Vital Signs Date Time Temp Pulse Resp B/P (MAP) Pulse Ox O2 Delivery O2 Flow Rate FiO2 12/24/24 01:00 70 18 93 45 12/24/24 00:03 93/57 12/23/24 22:32 Mechanical Ventilator 12/23/24 21:00 99.3 12/20/24 20:00 15.0 Lab Results: 12/23/24 0155 12/23/24 0155 Objective Appeared comfortable on the vent sedated with Precedex and fentanyl. RN reports patient gets easily agitated with minimal movements. Problem\Assessment\Plan Additional Plan 1. Chronic respiratory failure with acute worsening status. 2. Sepsis secondary to Proteus and Acinetobacter infection 3. Urinary tract infection with Proteus 4. Tracheobronchitis with both bugs above 5. TORITO on CKD 6. Anemia of chronic disease 7. EncephalopathyFortunately continues to remain stable on minimal oxygen requirement. Tolerating antibiotics. However renal functions have worsened. He is not oliguric. Anemia seems stable Plan Continue the current care From notes from ICU team suggest possibly, family may be leaning towards comfort care. BRIAN FAM MD Dec 24, 2024 01:33
[2024-12-24 02:18] LABS: BASOPHILS % (AUTO) 0.5 % (0-1); EOSINOPHILS # (AUTO) 0.2 X10'3 (0-0.9); EOSINOPHILS % (AUTO) 2.8 % (0-6); LYMPHOCYTES # (AUTO) 0.6 X10'3 (1.1-4.8); LYMPHOCYTES % (AUTO) 10.6 % (21-51); MEAN CORPUSCULAR HEMOGLOBIN 29.9 PG (27.0-31.0); MEAN CORPUSCULAR HGB CONC 33.1 g/dL (33.0-36.5); MEAN CORPUSCULAR VOLUME 90.1 FL (78-98); MEAN PLATELET VOLUME 7.8 FL (7.4-10.4); MONOCYTES # (AUTO) 0.6 X10'3 (0-0.9); MONOCYTES % (AUTO) 10.1 % (2-12); NEUTROPHILS # (AUTO) 4.2 X10'3 (1.8-7.7); PLATELET COUNT 279 X10'3 (140-440); RED CELL DISTRIBUTION WIDTH 17.7 % (11.5-14.5); WHITE BLOOD COUNT 5.6 X10'3 (4.5-11.0)
[2024-12-24 02:26] LABS: HEMOGLOBIN 6.9 g/dl (14.0-17.9)
[2024-12-24 02:27] LABS: HEMATOCRIT 20.8 % (42.0-52.0)
[2024-12-24 02:30] LABS: ALANINE AMINOTRANSFERASE 28 U/L (12-78); ALBUMIN 1.6 G/DL (3.4-5.0); ALKALINE PHOSPHATASE 362 IU/L (46-116); ANION GAP 12 (8-16); ASPARTATE AMINO TRANSFERASE 19 U/L (10-37); BILIRUBIN,TOTAL 0.2 MG/DL (0.1-1.0); BLOOD UREA NITROGEN 111 MG/DL (7-18); CALCIUM 6.4 MG/DL (8.5-10.1); CHLORIDE 106 MMOL/L (99-107); CREATININE 3.36 MG/DL (0.60-1.10); GLUCOSE 130 MG/DL (70-104); MAGNESIUM 2.1 MG/DL (1.5-2.4); PHOSPHORUS 5.9 MG/DL (2.3-4.5); POTASSIUM 4.3 MMOL/L (3.5-5.1); SODIUM 143 MMOL/L (135-145); TOTAL CARBON DIOXIDE 25.3 MMOL/L (24-32); eCRCL 17 ML/MIN; eGFR 19 ML/MIN
[2024-12-24 02:32] LABS: ALBUMIN/GLOBULIN RATIO 0.3 (1.1-1.5); TOTAL PROTEIN 6.2 G/DL (6.4-8.2)
--- NOTE | 2024-12-24 06:42 | PROGRESS NOTE ---
Progress Note Dictate Providers to CC ~ Progress Note: No new acute issues overnight Central Line/PICC still needed: Yes Mcmahon Indications Met/Not Met: F/C Indications Met Antibiotic Ordered?: Yes Subjective Subjective Comfortable Objective Vitals Vital Signs Date Time Temp Pulse Resp B/P (MAP) Pulse Ox O2 Delivery O2 Flow Rate FiO2 12/24/24 06:00 99.5 70 18 117/66 (83) 94 Mechanical Ventilator 45 12/20/24 20:00 15.0 Lab Results: 12/24/24 0200 12/24/24 0200 Objective Heart: A Fib Lungs: Coarse BS at bases Abdomen: soft, non-tender, BS (+) Ext: No edema Neuro: confuse Problem\Assessment\Plan Additional Plan 1-VDRF -Ventilator support 2-Severe Sepsis due to MDR Proteus & Acinetobacter UTI + Bacteremia -Continue abx -Contact Isolation 3-Chronic A Fib -Continue current tx 4-Delirium -Jefopaige Earl CC time 35min Sepsis Screening Reassessment Date: Dec 24, 2024 GWEN EARL MD Dec 24, 2024 06:42
--- NOTE | 2024-12-24 06:46 | RADIOLOGY REPORT ---
EXAM: XR Chest, 1 View CLINICAL INDICATION: Pain TECHNIQUE: Frontal view of the chest. COMPARISON: XR Chest dated 12/23/2024 FINDINGS: LUNGS AND PLEURAL SPACES: See below. HEART: Cardiomegaly with pulmonary congestion and edema. Superimposed pneumonia cannot be excluded. MEDIASTINUM: Unremarkable. Normal mediastinal contour. BONES/JOINTS: Unremarkable. No acute fracture. TUBES, LINES AND DEVICES: Tracheostomy tube in satisfactory position. IMPRESSION: Cardiomegaly with pulmonary congestion and edema. Superimposed pneumonia cannot be excluded.
[2024-12-24] MEDS: levoTHYROXINE 75mcg tablet PEG SCH (07:32)
[2024-12-24 07:50] LABS: HEMATOCRIT 24.9 % (42.0-52.0); HEMOGLOBIN 8.3 g/dl (14.0-17.9); MEAN CORPUSCULAR HEMOGLOBIN 30.1 PG (27.0-31.0); MEAN CORPUSCULAR HGB CONC 33.2 g/dL (33.0-36.5); MEAN CORPUSCULAR VOLUME 90.7 FL (78-98); MEAN PLATELET VOLUME 7.9 FL (7.4-10.4); PLATELET COUNT 292 X10'3 (140-440); RED BLOOD COUNT 2.74 X10'6 (4.70-6.10); RED CELL DISTRIBUTION WIDTH 17.2 % (11.5-14.5); WHITE BLOOD COUNT 6.2 X10'3 (4.5-11.0)
[2024-12-24] MEDS ORDERED: DEXTROSE 15 GM of carb/4 tabs (each vial/BOTTLE has 4 tablets) PEG PRN ×2 (09:23)
== END 2024-12-24 11:51 | DRG 720 ==
LOC: ER 21:48 → ED HOLD 12-19 01:34 → CICU 2S 12-19 07:10
PROVIDERS: ADMIT Internal Medicine Critical Care Medicine; ATTEND Internal Medicine Critical Care Medicine
PROC: 5A1955Z Respiratory Ventilation, Greater than 96 Consecutive Hours (ICD-10-PCS; 2024-12-19)
PROC: 02HV33Z Insertion of Infusion Device into Superior Vena Cava, Percutaneous Approach (ICD-10-PCS; principal; 2024-12-22)
PROC: 30233N1 Transfusion of Nonautologous Red Blood Cells into Peripheral Vein, Percutaneous Approach (ICD-10-PCS; 2024-12-22)
DX: A41.9 Sepsis, unspecified organism (principal); J96.20 Acute and chronic respiratory failure, unspecified whether with hypoxia or hypercapnia; R65.21 Severe sepsis with septic shock; G93.41 Metabolic encephalopathy; N17.9 Acute kidney failure, unspecified; D63.8 Anemia in other chronic diseases classified elsewhere; I48.20 Chronic atrial fibrillation, unspecified; J44.9 Chronic obstructive pulmonary disease, unspecified; I50.9 Heart failure, unspecified; N18.9 Chronic kidney disease, unspecified; E11.22 Type 2 diabetes mellitus with diabetic chronic kidney disease; F41.9 Anxiety disorder, unspecified; N30.00 Acute cystitis without hematuria; B96.4 Proteus (mirabilis) (morganii) as the cause of diseases classified elsewhere; Z79.01 Long term (current) use of anticoagulants; Z88.0 Allergy status to penicillin; Z79.4 Long term (current) use of insulin; Z79.899 Other long term (current) drug therapy
CPT/HCPCS: 36415; 36430; 36600; 70450; 71045; 80048; 80053; 81001; 82272; 82803; 82948; 83605; 83735; 84100; 84134; 84145; 85018; 85025; 85027; 86885; 86900; 86901; 86920; 87040; 87070; 87077; 87081; 87088; 87186; 93005; 94002; 94003; 94640; 94760; 94799; 96365; 96368; 99285; A4623; A5200; A6209; A6212; A6213; A6250; A6402; A6449; A7521; C1751; C1758; G0378; J0131; J0696; J1171; J1335; J1815; J2060; J2185; J2250; J2270; J2405; J2470; J3010; J3260; J3372; J3490; J7030; J7040; J7120; P9016